=== PATIENT | male | born 1950 | race Caucasian/White ===

== ENCOUNTER 2020-08-18 15:50 | Outpatient (REF) | payer MEDICARE, BC, SELFPAY ==
--- NOTE | 2020-08-18 16:15 | XR_ITS ---
EXAMINATION: XR CHEST CLINICAL INFORMATION: Shortness of breath. Former smoker. Hypercholesterolemia. COMPARISON: None TECHNIQUE: 2 views of the chest were obtained. FINDINGS: The lungs are well expanded. There is no focal consolidation, edema, or effusion. No pneumothorax. The cardiomediastinal silhouette is within normal limits. No acute osseous abnormality. Degenerative changes noted in the spine. XR/XR chest 2V IMPRESSION: No acute pulmonary finding.
[2020-08-18 16:23] LABS: MANUAL DIFF FLAG NO
[2020-08-18 16:26] LABS: Basophils Percent Auto 0.3 % (0-2); Eosinophils Absolute Auto 0.3 X10*3/uL (0.0-0.4); Eosinophils Percent Auto 2.7 % (0-4); Hematocrit 47.8 % (42-52); Hemoglobin 16.2 g/dl (14.0-18.0); Imm Gran Abs Auto 0.03 X10*3/uL (0.00-0.03); Imm Gran Pct Auto 0.3 % (0.0-0.4); Lymphocytes Absolute Auto 1.8 X10*3/uL (1.2-4.9); Lymphocytes Percent Auto 19.6 % (20-40); Mean Corpuscular HGB Conc 33.9 g/dl (31.0-36.0); Mean Corpuscular Hemoglobin 29.2 pg (27.0-33.0); Mean Corpuscular Volume 86.1 fL (80-98); Mean Platelet Volume 9.9 fL (9.4-12.4); Monocytes Absolute Auto 0.7 X10*3/uL (0.1-1.2); Monocytes Percent Auto 7.3 % (2-11); Neutrophils Absolute Auto 6.4 X10*3/uL (2.0-8.3); Neutrophils Percent Auto 69.8 % (45-73); Platelet Count 270 X10*3/uL (160-400); Red Blood Count 5.55 X10*6/uL (4.60-5.80); Red Cell Distribution Width 13.5 % (11.0-16.0); White Blood Count 9.1 X10*3/uL (4.8-10.8)
[2020-08-18 16:59] LABS: Alanine Aminotransferase 36 U/L (0-40); Albumin Level 4.3 g/dL (3.5-5.0); Alkaline Phosphatase 117 U/L (39-117); Anion Gap 15 (12-20); Aspartate Amino Transferase 27 U/L (5-37); Bilirubin Total 0.4 mg/dL (0.0-1.0); Blood Urea Nitrogen 18 mg/dL (9-16); Calcium 9.2 mg/dL (8.4-10.2); Carbon Dioxide 28 mmol/L (22-29); Chloride 102 mmol/L (96-108); Cholesterol 168 mg/dL; Estimated Glomerular Filt Rate > 60; Glucose Random 101 mg/dL (60-115); HDL Cholesterol 32 mg/dL; LDL Cholesterol Calculated 95 mg/dl; Potassium 4.2 mmol/l (3.3-5.1); Sodium 141 mmol/L (135-145); Total Protein 7.9 g/dL (6.5-8.0); Triglycerides 208 mg/dL
[2020-08-19 07:47] LABS: Estimated Average Glucose 151 mg/dL; Hemoglobin A1c % 6.9 %
== END 2020-08-18 15:51 | disposition home or self-care (01) ==
LOC: HO.LAB 15:50
PROVIDERS: PCP Internal Medicine Medical Oncology; Visit Provider Internal Medicine Medical Oncology
DX: R06.02 Shortness of breath (principal); E78.00 Pure hypercholesterolemia, unspecified; Z87.891 Personal history of nicotine dependence
CPT/HCPCS: 36415; 71046; 80053; 80061; 83036; 85025

== ENCOUNTER 2020-08-24 07:54 | Outpatient (REF) | payer MEDICARE, BC, SELFPAY ==
--- NOTE | 2020-08-24 | PFT_ITS ---
FLOWS: FEV1 of 63% of predicted at 2.37 L. FVC 67% of predicted at 3.40 L. FEV1 to FVC ratio of 0.70. Positive bronchodilator response. LUNG VOLUMES: Total lung capacity 82% of predicted at 6.33 L. Residual volume 123% of predicted at 3.16 L. Slow vital capacity 62% of predicted at 3.16 L. Expiratory reserve volume of predicted at 0.27 L. Diffusion capacity is mildly decreased, diffusion capacity corrects to normal after adjustment for alveolar ventilation. IMPRESSION: Moderate obstructive ventilatory defect with positive bronchodilator response. Increased residual volume suggests air trapping. Decreased expiratory reserve volume suggests extrathoracic restriction likely secondary to abdominal obesity. MD IVETH Yao/MODL / [id number]
== END 2020-08-24 07:55 | disposition home or self-care (01) ==
LOC: HO.RESP 07:54
PROVIDERS: PCP Internal Medicine Medical Oncology; Visit Provider Internal Medicine Medical Oncology
DX: R06.02 Shortness of breath (principal); E78.00 Pure hypercholesterolemia, unspecified; Z87.891 Personal history of nicotine dependence
CPT/HCPCS: 94060; 94727; 94729

== ENCOUNTER 2023-04-21 16:19 | Emergency (ER) | payer MEDICARE, BC, SELFPAY ==
--- NOTE | ~2023-04-21 | CT_ITS ---
CT THORACIC SPINE WITH CONTRAST CT LUMBAR SPINE WITH CONTRAST HISTORY: 72 years old Male, back pain TECHNIQUE: CT images of the thoracic and lumbar spine were acquired allowing intravenous administration of 100 mL Omnip[address] examination was performed using dose optimization techniques as appropriate, variously including the following: *Automated exposure control *Adjustment of mA and/or kV according to patient size (this includes techniques or standardized protocols for targeted exams where dose is matched to indication/reason for exam; i.e. extremities or head) *Use of iterative reconstruction technique DLP: 2446.62 mGy-cm COMPARISON: None available FINDINGS: THORACIC: Slight levocurvature of the cervicothoracic junction. Slightly exaggerated midthoracic kyphosis at T5-T6. Extensive exuberant diffuse idiopathic skeletal hyperostosis with bridging prevertebral/paraspinal ossification and ventral disc osteophytes with multilevel osseous fusion spanning from T3 into the lumbar spine, apart from T5-T6 where there is a chronic pseudoarthrosis with vacuum disc phenomenon. Vertebral body heights are maintained. No findings of discitis osteomyelitis in the thoracic or imaged cervical spine. There is multilevel mild thoracic disc height loss and small endplate Schmorl's nodes with degenerative endplate irregularity most pronounced at T5-T6.Please note canal patency is not well assessed on this examination due to inherent limitations of CT without intrathecal contrast. Partially imaged cervical spondylosis, including a central disc protrusion and C3-C4 encroaching upon the ventral cord. Varying degrees of high-grade neural foraminal narrowing in the mid to lower cervical spine. Disc osteophyte at T5-T6 contributes to mild spinal canal narrowing. No significant thoracic neural foraminal stenosis at any level. The visualized lungs are clear. Partially imaged cardiac pacemaker leads. Mild calcific plaque of the aortic arch and great vessel origins, and imaged carotid bifurcations. 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 The L5-S1 disc space can be seen on image 99, series 14. Postsurgical changes following right hemilaminectomy at L5-S1 with instrumented posterior interbody fusion utilizing paired vertical stabilization rods and bilateral transpedicular screws at these levels. The hardware appears intact without periprosthetic osteolysis to suggest loosening or infection. Chronic right L4 pars interarticularis defect. An L4-L5 interspinous posterior device is seen. There is a left L3 laminectomy defect and partial left facetectomy at L3-L4, where there is amorphous soft tissue in the laminectomy bed with indistinctness of the spinal canal which is not well delineated from adjacent soft tissue with effacement of the thecal sac. Findings would be better assessed with contrast-enhanced MRI. The quadratus lumborum musculature appear symmetric without evidence of peripherally enhancing fluid collection/abscess. The psoas muscles are symmetric without paraspinal inflammatory change. Mild lumbar levocurvature centered at L4-L5. Slight right lateral listhesis at L3-L4. Normal lumbar lordosis is preserved. Slight retrolisthesis at L3-L4. Severe disc height loss at L4-L5, moderate at L3-L4 with multilevel vacuum disc phenomenon. Prominent eburnation at L3-L4 with subchondral cystic change, to lesser extent at L4-L5, presumably degenerative in etiology. Multilevel ventral disc osteophytes with bridging prevertebral/paraspinal ossification. Cortical indistinctness/erosive change of lateral paraspinal ossification at L3-L4 (image 27, series 15), which reflect sequelae of prior infectious/inflammatory process. Please not canal patency is not well assessed on this examination due to inherent limitations of CT without intrathecal contrast. Within these limitations, multilevel degenerative changes with level by level detail are as follows: L1-L2: Annular disc bulge. No spinal canal or neural foraminal stenosis. L2-L3: Annular disc bulge with osteophytic ridging and mild bilateral facet arthrosis. Prominence of the dorsal epidural fat. Moderate to severe spinal canal and subarticular zone narrowing. Moderate left and mild to moderate right neural foraminal narrowing. L3-L4: Postsurgical changes with soft tissue within the left L3 laminectomy bed and indistinctness of the spinal canal with thecal sac effacement as discussed above, which would be better assessed on contrast-enhanced MRI. Disc osteophyte complex and bilateral facet arthrosis. Severe left neural foraminal stenosis with compression of the exiting left L3 nerve root and moderate right neural foraminal stenosis. L4-L5: Nondiagnostic assessment of the spinal canal from streak artifact. Disc osteophyte complex and moderate facet arthropathy contribute to apparent mild bony spinal canal stenosis. Severe bilateral neural foraminal stenosis with compression of the exiting L4 nerve roots. L5-S1: Postsurgical changes as above. Disc osteophyte complex and bilateral facet arthrosis. Nondiagnostic assessment of the spinal canal due to streak artifact however without significant bony spinal canal stenosis. Severe right and moderate to severe left neural foraminal stenosis with mass effect along the exiting right greater than left L5 nerve roots. Postsurgical changes in the paramidline dorsal soft tissues and moderate fatty atrophy of the lower paraspinal musculature. Asymmetric atrophy of the right piriformis muscle. Significant colonic diverticulosis with mural thickening, likely on the basis of chronic muscular hypertrophy without significant pericolonic fat stranding. Mild aortobiiliac calcific atherosclerotic disease. The abdominal aorta is of normal contour and caliber. CT/CT thoracic spine w IV con IMPRESSION: 1. 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 2. Left L3 laminectomy and partial left L3-L4 facetectomy. Amorphous soft tissue in the laminectomy bed with indistinctness of the spinal canal which is not well delineated from adjacent soft tissue with resultant thecal sac effacement. Recommend further evaluation assessed with contrast-enhanced MRI. Cortical indistinctness/erosive change of lateral paraspinal ossification at this level may reflect sequelae of prior infectious/inflammatory process. 3. The quadratus lumborum musculature appear symmetric without evidence of peripherally enhancing fluid collection/abscess. 4. Postsurgical changes following right hemilaminectomy at L5-S1 and posterior interbody fusion at L5-S1 with intact hardware. No evidence of periprosthetic osteolysis to suggest loosening or infection. 5. Findings of thoracolumbar DISH as above with pseudoarthrosis at T5-T6. 6. Please not canal patency is not well assessed on this examination due to inherent limitations of CT without intrathecal contrast. There is apparent moderate to severe spinal canal stenosis at L2-L3 and mild spinal canal stenosis at L4-L5. High-grade neural foraminal stenosis spanning from L3-L4 to L5-S1 with mass effect along the exiting nerve roots as described above.
[2023-04-21 16:50] VITALS: BP 142/76; BP 162/70; PULSE 76; PULSE 83; RESP 18; TEMP 37.1; O2SAT 96; BMI 37.4
--- NOTE | 2023-04-21 16:54 | PC.NURSE ---
Patient arrived from [facility] for complaints of ams and back pain. patient alert and oriented and stating he has 10/10 back pain. Starting yesterday stating he has had wheezing, sob, and disorientation. Per daughter BP is always high. Per patient/daughter in november had an electrical stimulator placed. In march became disoriented, went to [facility] from march 02- . 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 Had a l3-l4 infection and was started on vanco for spine infection. Went to snf for vanco. Per patient infection is spreading to muscle and in spine. Abt switched from vanco. Bilateral tiera wraps to legs.
--- NOTE | 2023-04-21 17:10 | ECG_ITS ---
Test Reason : SOB Blood Pressure : / mmHG Vent. Rate : 073 BPM Atrial Rate : 394 BPM P-R Int : 000 ms QRS Dur : 098 ms QT Int : 370 ms P-R-T Axes : 029 001 015 degrees QTc Int : 407 ms Normal sinus rhythm Incomplete right bundle branch block Cannot rule out Anterior infarct , age undetermined Abnormal ECG No previous ECGs available Referred By: Priyanka Rico Electronically Signed By:Mariano Corrigan
--- NOTE | 2023-04-21 17:15 | ED_ITS ---
HPI - General Adult General Chief complaint: General Medical Stated complaint: SHORTNESS OF BREATH WEAKNESS Time Seen by Provider: 04/21/23 16:25 Source: patient and family Mode of arrival: EMS Limitations: no limitations History of Present Illness HPI narrative: Patient comes to the emergency room from a nursing facility, patient complaining of worsening back pain, status post stimulator placement complicated by a muscular abscess and diskitis. Patient was recently discharged from [facility], patient was diagnosed with the left quadratus lumborum , diskitis, inflammation all spinal canal with mild central stenosis. Patient currently taking IV meropenem and daptomycin. According to the patient's daughter, he has been more altered than usual. Admission to [facility] was complicated by pain management and diarrhea. Patient states that he was having diarrhea at [facility], however it resolved initially. Now, since the last week approximately, he has been having 6 diarrhea bowel movements daily. Patient denies fever or chills. Patient concerned that the infection in his back got worse. Related Data Previous Rx's Medication Instructions Recorded hydromorphone 2 mg tablet 2 mg PO Q6H PRN pain #10 tabs 04/21/23 (Dilaudid) Allergies Allergy/AdvReac Type Severity Reaction Status Date / Time Penicillins Allergy Unknown Unknown Verified 04/21/23 17:09 ativan Allergy Unknown Unknown Uncoded 04/21/23 17:09 Review of Systems Review of Systems: Constitutional : No Weight loss, No Fever, No Chills, No Night Sweats, No Fatigue, No Malaise ENT/Mouth : No Hearing loss, No Ear Pain, No Nasal Congestion, No Sinus Pain, No Hoarseness, No sore throat, No Rhinorrhea, No Swallowing Difficulty Eyes: No Eye Pain, No Swelling, No Redness, No Foreign Body, No Discharge, No Vision Changes Cardiovascular : No Chest Pain, No SOB, No Dyspnea on Exertion, No Orthopnea, No Edema, No Palpitations Respiratory : No Cough, No Sputum, No Wheezing, No Smoke Exposure, No Dyspnea Gastrointestinal : No Nausea, No Vomiting, complaining of Diarrhea, No Constipation, No abdominal Pain, No Hematochezia, No Melena Genitourinary : no irregular bleeding, No Dysuria, No Urinary Frequency, No Hematuria, No Urinary Incontinence, No Urgency, No Flank Pain, No Urinary Flow Changes, No Hesitancy Musculoskeletal : Patient complaining of acute on chronic thoracic and lumbar pain, No Myalgias, No Joint Swelling Skin : No Skin Lesions, No rash Neuro : No Weakness, No Numbness, No Paresthesias, No Loss of Consciousness, No Dizziness, No Headache Psych : No Anxiety/Panic, No Depression, No SI/HI/AH/VH, No Social Issues, Heme/Lymph: No Bruising, No Bleeding,No Lymphadenopathy Endocrine : No Polyuria, No Polydipsia, No Temperature Intolerance [facility] Past Medical History Medical History (Updated 04/21/23 @ 22:25 by Priyanka Rico MD) Chronic back pain CKD (chronic kidney disease) COPD (chronic obstructive pulmonary disease) Diabetes Hyperlipidemia Hypertension Lumbar stenosis Social History Social History Alcohol intake: never Smoked in Last 30 Days: No Use of substances other than those prescribed or required for medical reasons: No Advance Directives: No Advance Directives Information Provided: No Physical Exam ED Vital Signs: Vital Signs - 24 hr 04/21/23 16:50 04/21/23 17:17 04/21/23 17:46 Temperature 98.8 F 98.8 F Pulse Rate 83 83 94 Respiratory Rate 18 18 18 Blood Pressure 162/70 H 162/70 H 140/77 H Pulse Oximetry 96 95 Oxygen Delivery Method Room Air Room Air Room Air 04/21/23 19:57 Temperature 99.2 F Pulse Rate 77 Respiratory Rate 16 Blood Pressure 149/79 H Pulse Oximetry 94 Oxygen Delivery Method Room Air BMI result Body Mass Index 37.4 Const Other: Appearance: Alert. Oriented X3. No acute distress. Eyes: Pupils equal, round and reactive to light. ENT: Pharynx normal. Neck: Normal inspection. Neck supple. No lymph nodes noted. No crepitus CVS: Normal heart rate and rhythm. Pulses normal. Normal S1 and S2 Respiratory: No respiratory distress. Breath sounds normal. No Wheezing. No rales Abdomen: Soft and nontender. No rigidity. No distention. Multiple ecchymoses in abdomen (from IM blood thinner) Back: Pain to palpation over the lower thoracic and upper lumbar spine, pain out of proportion Skin: Skin warm and dry. Normal skin color. Normal skin turgor. Extremities: No lower extremity edema. No Lacerations. No Rash Neuro: Oriented X 3. No motor deficit. No sensory deficit. Moving all extremities. No slurred speech. CN 2 through 12 grossly intact Psych: calm, cooperative, normal affect Medications Administered Discontinued Medications Generic Name Dose Route Start Last Admin Trade Name Jaspreet PRN Reason Stop Dose Admin Hydromorphone HCl 1 mg 04/21/23 17:31 04/21/23 17:41 Hydromorphone Hcl 1 Mg/Ml Syringe IVPUSH 04/21/23 17:32 1 mg ONCE ONE Administration Protocol Iohexol 100 ml 04/21/23 18:59 04/21/23 19:00 Iohexol 350 Mg/Ml 75 Ml Infus..Btl IV 04/21/23 19:00 100 ml ONCE ONE Administration Medical Decision Making Medical Decision Making [facility] Narrative: -I discussed the CT scan of the thoracic and lumbar spine with the patient, his daughter was in the room and his over the phone. All chronic issues. The previous abscess of the quadratus lumborum is no longer visible, there is no evidence of peripherally enhancing fluid collection or abscess. Cortical erosive changes of the lateral paraspinal suffocation at L3-L4 likely secondary to sequela of prior infectious or inflammatory process. Multiple postsurgical changes and chronic findings. No acute changes. White blood cell count within normal limits, ESR minimally elevated at 38, CRP 1.75. Patient has no fever or chills, normal blood pressure. -patient given several doses of Dilaudid for pain. Requesting a prescription for the skilled facility. -patient to continue taking IV meropenem and daptomycin as instructed per [facility] Patient was in the emergency room for at least 6 hours, he did not have a single episode of diarrhea, we did not obtain a stool sample, given the normal white blood cell count and no diarrhea, unlikely that patient has C diff Differential Diagnosis Differential Diagnoses: The differential diagnosis associated with the presentation includes (Worsening abscess, new abscess of the back muscles) Admission/Observation Consideration of admission/observation: Escalation of care including admission/observation considered (Admission was considered when patient arrived, patient had multiple surgeries in the back, biopsies, recently discharged from the hospital, severe pain. However now feeling better after IV Dilaudid) Lab Data [facility] Lab Attestation statement: I reviewed the patient's lab results. 04/21/23 17:33 04/21/23 17:32 Labs: Lab Results 04/21/23 04/21/23 04/21/23 Range/Units 17:32 17:32 17:32 WBC (4.8-10.8) X10*3/uL RBC (4.60-5.80) X10*6/uL Hgb (14.0-18.0) g/dl Hct (42.0-52.0) % MCV (80.0-98.0) fL MCH (27.0-33.0) pg MCHC (31.0-36.0) g/dl RDW (11.0-16.0) % Plt Count (160-400) X10*3/uL MPV (9.4-12.4) fL Immature Gran % (Auto) (0.0-0.4) % Neut % (Auto) (45-73) % Lymph % (Auto) (20-40) % [place] % (Auto) (2-11) % Eos % (Auto) (0-4) % Baso % (Auto) (0-2) % Lymph # (Auto) (1.2-4.9) X10*3/uL [place] # (Auto) (0.1-1.2) X10*3/uL Eos # (Auto) (0.0-0.4) X10*3/uL Baso # (Auto) (0.0-0.2) X10*3/uL Abs Immat Gran (auto) (0.00-0.03) X10*3/uL Absolute Neuts (auto) (2.0-8.3) x10*3/uL Absolute Nucleated RBC (0.0-0.012) X10*3/uL Nucleated RBC % (auto) (0.0-0.2) /100WBC ESR (0-15) MM/HR PT 12.4 (10.0-13.1) SEC INR 1.1 (0.9-1.1) Sodium 137 (135-145) mmol/L Potassium 4.2 (3.3-5.1) mmol/L Chloride 101 (96-108) mmol/L Carbon Dioxide 29 (22-29) mmol/L Anion Gap 11 L (12-20) BUN 17 H (9-16) mg/dL Creatinine 1.14 (0.5-1.4) mg/dL Estim Creat Clear Calc 87.1 Estimated GFR > 60 Random Glucose 102 (60-115) mg/dL Lactic Acid (0.5-2.0) mmol/L Calcium 9.4 (8.4-10.2) mg/dL Total Bilirubin 0.4 (0.0-1.0) mg/dL Direct Bilirubin 0.2 (0.0-0.5) mg/dL AST 44 H (5-37) U/L ALT 52 H (0-40) U/L Alkaline Phosphatase 121 H (39-117) U/L Troponin I High Sens 5.3 (<3.5-35.0) ng/L C-Reactive Protein 1.75 H (< or = 0.50) mg/dL B-Natriuretic Peptide (<100) pg/mL Total Protein 7.7 (6.5-8.0) g/dL Albumin 3.8 (3.5-5.0) g/dL Urine Color Urine Appearance Urine pH (5.0-9.0) Ur Specific [place] (1.005-1.025) Urine Protein (Neg-Trace) mg/dL Urine Glucose (UA) (Negative) mg/dL Urine Ketones (Negative) mg/dL Urine Blood (Negative) Urine Nitrite (Negative) Ur Leukocyte Esterase (Negative) Urine RBC (0-2) /HPF Urine WBC (0-5) /HPF Ur Squamous Epith Cells (0-2) /HPF Urine Bacteria (None Seen) Hyaline Casts (0-2) /LPF COVID-19 (NAYAN) (Negative) COVID-19 Clin Com 04/21/23 04/21/23 04/21/23 Range/Units 17:32 17:33 17:33 WBC 6.1 (4.8-10.8) X10*3/uL RBC 4.63 (4.60-5.80) X10*6/uL Hgb 12.6 L (14.0-18.0) g/dl Hct 39.2 L (42.0-52.0) % MCV 84.7 (80.0-98.0) fL MCH 27.2 (27.0-33.0) pg MCHC 32.1 (31.0-36.0) g/dl RDW 13.3 (11.0-16.0) % Plt Count 228 (160-400) X10*3/uL MPV 10.1 (9.4-12.4) fL Immature Gran % (Auto) 0.3 (0.0-0.4) % Neut % (Auto) 56.1 (45-73) % Lymph % (Auto) 15.3 L (20-40) % [place] % (Auto) 10.8 (2-11) % Eos % (Auto) 17.0 H (0-4) % Baso % (Auto) 0.5 (0-2) % Lymph # (Auto) 0.9 L (1.2-4.9) X10*3/uL [place] # (Auto) 0.7 (0.1-1.2) X10*3/uL Eos # (Auto) 1.0 H (0.0-0.4) X10*3/uL Baso # (Auto) 0.0 (0.0-0.2) X10*3/uL Abs Immat Gran (auto) 0.02 (0.00-0.03) X10*3/uL Absolute Neuts (auto) 3.4 (2.0-8.3) x10*3/uL Absolute Nucleated RBC 0.000 (0.0-0.012) X10*3/uL Nucleated RBC % (auto) 0.0 (0.0-0.2) /100WBC ESR 38 H (0-15) MM/HR PT (10.0-13.1) SEC INR (0.9-1.1) Sodium (135-145) mmol/L Potassium (3.3-5.1) mmol/L Chloride (96-108) mmol/L Carbon Dioxide (22-29) mmol/L Anion Gap (12-20) BUN (9-16) mg/dL Creatinine (0.5-1.4) mg/dL Estim Creat Clear Calc Estimated GFR Random Glucose (60-115) mg/dL Lactic Acid (0.5-2.0) mmol/L Calcium (8.4-10.2) mg/dL Total Bilirubin (0.0-1.0) mg/dL Direct Bilirubin (0.0-0.5) mg/dL AST (5-37) U/L ALT (0-40) U/L Alkaline Phosphatase (39-117) U/L Troponin I High Sens (<3.5-35.0) ng/L C-Reactive Protein (< or = 0.50) mg/dL B-Natriuretic Peptide 51 (<100) pg/mL Total Protein (6.5-8.0) g/dL Albumin (3.5-5.0) g/dL Urine Color Urine Appearance Urine pH (5.0-9.0) Ur Specific [place] (1.005-1.025) Urine Protein (Neg-Trace) mg/dL Urine Glucose (UA) (Negative) mg/dL Urine Ketones (Negative) mg/dL Urine Blood (Negative) Urine Nitrite (Negative) Ur Leukocyte Esterase (Negative) Urine RBC (0-2) /HPF Urine WBC (0-5) /HPF Ur Squamous Epith Cells (0-2) /HPF Urine Bacteria (None Seen) Hyaline Casts (0-2) /LPF COVID-19 (NAYAN) (Negative) COVID-19 Clin Com 04/21/23 04/21/23 04/21/23 Range/Units 17:33 17:36 17:50 WBC (4.8-10.8) X10*3/uL RBC (4.60-5.80) X10*6/uL Hgb (14.0-18.0) g/dl Hct (42.0-52.0) % MCV (80.0-98.0) fL MCH (27.0-33.0) pg MCHC (31.0-36.0) g/dl RDW (11.0-16.0) % Plt Count (160-400) X10*3/uL MPV (9.4-12.4) fL Immature Gran % (Auto) (0.0-0.4) % Neut % (Auto) (45-73) % Lymph % (Auto) (20-40) % [place] % (Auto) (2-11) % Eos % (Auto) (0-4) % Baso % (Auto) (0-2) % Lymph # (Auto) (1.2-4.9) X10*3/uL [place] # (Auto) (0.1-1.2) X10*3/uL Eos # (Auto) (0.0-0.4) X10*3/uL Baso # (Auto) (0.0-0.2) X10*3/uL Abs Immat Gran (auto) (0.00-0.03) X10*3/uL Absolute Neuts (auto) (2.0-8.3) x10*3/uL Absolute Nucleated RBC (0.0-0.012) X10*3/uL Nucleated RBC % (auto) (0.0-0.2) /100WBC ESR (0-15) MM/HR PT (10.0-13.1) SEC INR (0.9-1.1) Sodium (135-145) mmol/L Potassium (3.3-5.1) mmol/L Chloride (96-108) mmol/L Carbon Dioxide (22-29) mmol/L Anion Gap (12-20) BUN (9-16) mg/dL Creatinine (0.5-1.4) mg/dL Estim Creat Clear Calc Estimated GFR Random Glucose (60-115) mg/dL Lactic Acid 0.9 (0.5-2.0) mmol/L Calcium (8.4-10.2) mg/dL Total Bilirubin (0.0-1.0) mg/dL Direct Bilirubin (0.0-0.5) mg/dL AST (5-37) U/L ALT (0-40) U/L Alkaline Phosphatase (39-117) U/L Troponin I High Sens (<3.5-35.0) ng/L C-Reactive Protein (< or = 0.50) mg/dL B-Natriuretic Peptide (<100) pg/mL Total Protein (6.5-8.0) g/dL Albumin (3.5-5.0) g/dL Urine Color Yellow Urine Appearance Clear Urine pH 7.5 (5.0-9.0) Ur Specific [place] 1.010 (1.005-1.025) Urine Protein Trace (Neg-Trace) mg/dL Urine Glucose (UA) Negative (Negative) mg/dL Urine Ketones Negative (Negative) mg/dL Urine Blood Trace H (Negative) Urine Nitrite Negative (Negative) Ur Leukocyte Esterase Negative (Negative) Urine RBC 0-2 (0-2) /HPF Urine WBC 0-5 (0-5) /HPF Ur Squamous Epith Cells 0-2 (0-2) /HPF Urine Bacteria None Seen (None Seen) Hyaline Casts 0-2 (0-2) /LPF COVID-19 (NAYAN) Negative (Negative) COVID-19 Clin Com See Note Radiology Impression Discussion of test interpretation with radiology: I have reviewed the radiol ogist's reading. Radiologist Impression: FINDINGS: THORACIC: Slight levocurvature of the cervicothoracic junction. Slightly exaggerated midthoracic kyphosis at T5-T6. Extensive exuberant diffuse idiopathic skeletal hyperostosis with bridging prevertebral/paraspinal ossification and ventral disc osteophytes with multilevel osseous fusion spanning from T3 into the lumbar spine, apart from T5-T6 where there is a chronic pseudoarthrosis with vacuum disc phenomenon. Vertebral body heights are maintained. No findings of discitis osteomyelitis in the thoracic or imaged cervical spine. There is multilevel mild thoracic disc height loss and small endplate Schmorl's nodes with degenerative endplate irregularity most pronounced at T5-T6.Please note canal patency is not well assessed on this examination due to inherent limitations of CT without intrathecal contrast. Partially imaged cervical spondylosis, including a central disc protrusion and C3-C4 encroaching upon the ventral cord. Varying degrees of high-grade neural foraminal narrowing in the mid to lower cervical spine. Disc osteophyte at T5-T6 contributes to mild spinal canal narrowing. No significant thoracic neural foraminal stenosis at any level. The visualized lungs are clear. Partially imaged cardiac pacemaker leads. Mild calcific plaque of the aortic arch and great vessel origins, and imaged carotid bifurcations. 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 The L5-S1 disc space can be seen on image 99, series 14. Postsurgical changes following right hemilaminectomy at L5-S1 with instrumented posterior interbody fusion utilizing paired vertical stabilization rods and bilateral transpedicular screws at these levels. The hardware appears intact without periprosthetic osteolysis to suggest loosening or infection. Chronic right L4 pars interarticularis defect. An L4-L5 interspinous posterior device is seen. There is a left L3 laminectomy defect and partial left facetectomy at L3-L4, where there is amorphous soft tissue in the laminectomy bed with indistinctness of the spinal canal which is not well delineated from adjacent soft tissue with effacement of the thecal sac. Findings would be better assessed with contrast-enhanced MRI. The quadratus lumborum musculature appear symmetric without evidence of peripherally enhancing fluid collection/abscess. The psoas muscles are symmetric without paraspinal inflammatory change. Mild lumbar levocurvature centered at L4-L5. Slight right lateral listhesis at L3-L4. Normal lumbar lordosis is preserved. Slight retrolisthesis at L3-L4. Severe disc height loss at L4-L5, moderate at L3-L4 with multilevel vacuum disc phenomenon. Prominent eburnation at L3-L4 with subchondral cystic change, to lesser extent at L4-L5, presumably degenerative in etiology. Multilevel ventral disc osteophytes with bridging prevertebral/paraspinal ossification. Cortical indistinctness/erosive change of lateral paraspinal ossification at L3-L4 (image 27, series 15), which reflect sequelae of prior infectious/inflammatory process. Please not canal patency is not well assessed on this examination due to inherent limitations of CT without intrathecal contrast. Within these limitations, multilevel degenerative changes with level by level detail are as follows: L1-L2: Annular disc bulge. No spinal canal or neural foraminal stenosis. L2-L3: Annular disc bulge with osteophytic ridging and mild bilateral facet arthrosis. Prominence of the dorsal epidural fat. Moderate to severe spinal canal and subarticular zone narrowing. Moderate left and mild to moderate right neural foraminal narrowing. L3-L4: Postsurgical changes with soft tissue within the left L3 laminectomy bed and indistinctness of the spinal canal with thecal sac effacement as discussed above, which would be better assessed on contrast-enhanced MRI. Disc osteophyte complex and bilateral facet arthrosis. Severe left neural foraminal stenosis with compression of the exiting left L3 nerve root and moderate right neural foraminal stenosis. L4-L5: Nondiagnostic assessment of the spinal canal from streak artifact. Disc osteophyte complex and moderate facet arthropathy contribute to apparent mild bony spinal canal stenosis. Severe bilateral neural foraminal stenosis with compression of the exiting L4 nerve roots.? L5-S1: Postsurgical changes as above. Disc osteophyte complex and bilateral facet arthrosis. Nondiagnostic assessment of the spinal canal due to streak artifact however without significant bony spinal canal stenosis. Severe right and moderate to severe left neural foraminal stenosis with mass effect along the exiting right greater than left L5 nerve roots. Postsurgical changes in the paramidline dorsal soft tissues and moderate fatty atrophy of the lower paraspinal musculature. Asymmetric atrophy of the right piriformis muscle. Significant colonic diverticulosis with mural thickening, likely on the basis of chronic muscular hypertrophy without significant pericolonic fat stranding. Mild aortobiiliac calcific atherosclerotic disease. The abdominal aorta is of normal contour and caliber. CT/CT thoracic spine w IV con IMPRESSION: ? 1.? 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 2.? Left L3 laminectomy and partial left L3-L4 facetectomy. Amorphous soft tissue in the laminectomy bed with indistinctness of the spinal canal which is not well delineated from adjacent soft tissue with resultant thecal sac effacement. Recommend further evaluation assessed with contrast-enhanced MRI. Cortical indistinctness/erosive change of lateral paraspinal ossification at this level may reflect sequelae of prior infectious/inflammatory process. 3.? The quadratus lumborum musculature appear symmetric without evidence of peripherally enhancing fluid collection/abscess. 4.? Postsurgical changes following right hemilaminectomy at L5-S1 and posterior interbody fusion at L5-S1 with intact hardware. No evidence of periprosthetic osteolysis to suggest loosening or infection. 5.? Findings of thoracolumbar DISH as above with pseudoarthrosis at T5-T6. 6.? Please not canal patency is not well assessed on this examination due to inherent limitations of CT without intrathecal contrast. There is apparent moderate to severe spinal canal stenosis at L2-L3 and mild spinal canal stenosis at L4-L5. High-grade neural foraminal stenosis spanning from L3-L4 to L5-S1 with mass effect along the exiting nerve roots as described above. ? Discharge Plan Discharge Clinical Impression: Chronic back pain Patient Disposition: Home, Self-Care Instructions: Chronic Back Pain (DC) Additional Instructions: Please follow-up with your primary care physician tomorrow. If you have any worsening or new symptoms, please return to the emergency room or call 911 Prescriptions: New hydromorphone [Dilaudid] 2 mg tablet 2 mg PO Q6H PRN (Reason: pain) Qty: 10 0RF Rx Instructions: Partial Fill upon patient request.
[2023-04-21 17:17] VITALS: BP 162/70; PULSE 83; RESP 18; TEMP 37.1; O2SAT 96
[2023-04-21] MEDS: HYDROmorphone HCl 1 MG/ML SYRINGE IVPUSH ×2 (17:41→22:47)
[2023-04-21 17:45] LABS: MANUAL DIFF FLAG NO
[2023-04-21 17:46] VITALS: BP 140/77; PULSE 94; RESP 18; O2SAT 95
[2023-04-21 17:51] LABS: Basophils Percent Auto 0.5 % (0-2); Hematocrit 39.2 % (42.0-52.0); Hemoglobin 12.6 g/dl (14.0-18.0); Imm Gran Abs Auto 0.02 X10*3/uL (0.00-0.03); Imm Gran Pct Auto 0.3 % (0.0-0.4); Lymphocytes Absolute Auto 0.9 X10*3/uL (1.2-4.9); Lymphocytes Percent Auto 15.3 % (20-40); Mean Corpuscular HGB Conc 32.1 g/dl (31.0-36.0); Mean Corpuscular Hemoglobin 27.2 pg (27.0-33.0); Mean Corpuscular Volume 84.7 fL (80.0-98.0); Mean Platelet Volume 10.1 fL (9.4-12.4); Monocytes Absolute Auto 0.7 X10*3/uL (0.1-1.2); Monocytes Percent Auto 10.8 % (2-11); Neutrophils Absolute Auto 3.4 x10*3/uL (2.0-8.3); Neutrophils Percent Auto 56.1 % (45-73); Platelet Count 228 X10*3/uL (160-400); Red Blood Count 4.63 X10*6/uL (4.60-5.80); Red Cell Distribution Width 13.3 % (11.0-16.0); White Blood Count 6.1 X10*3/uL (4.8-10.8)
[2023-04-21 17:57] LABS: INTERNATIONAL NORM RATIO 1.1 (0.9-1.1); Prothrombin Time 12.4 SEC (10.0-13.1)
[2023-04-21 18:00] LABS: Appearance Urine Clear; Color Urine Yellow; Glucose Urine UA Negative (Negative); Leukocyte Esterase Urine Negative (Negative); Nitrite Urine Negative (Negative); PH 7.5 (5.0-9.0); UMIC TRIGGER UACC YES; Urine Blood Trace (Negative); Urine Ketones Negative (Negative); Urine Protein Trace mg/dL (Neg-Trace)
[2023-04-21 18:02] LABS: Bacteria Urine None Seen (None Seen); Hyaline Casts Urine 0-2 /LPF (0-2); RBC Urine 0-2 /HPF (0-2); Squamous Epithelial Cell Urine 0-2 /HPF (0-2); WBC Urine 0-5 /HPF (0-5)
[2023-04-21 18:04] LABS: Lactic Acid 0.9 mmol/L (0.5-2.0)
[2023-04-21 18:07] LABS: Alanine Aminotransferase 52 U/L (0-40); Albumin Level 3.8 g/dL (3.5-5.0); Alkaline Phosphatase 121 U/L (39-117); Anion Gap 11 (12-20); Aspartate Amino Transferase 44 U/L (5-37); Bilirubin Direct 0.2 mg/dL (0.0-0.5); Bilirubin Total 0.4 mg/dL (0.0-1.0); Blood Urea Nitrogen 17 mg/dL (9-16); C Reactive Protein 1.75 mg/dL (< or = 0.50); Calcium 9.4 mg/dL (8.4-10.2); Carbon Dioxide 29 mmol/L (22-29); Chloride 101 mmol/L (96-108); Creatinine Clr Calc Pharmacy 87.1; Estimated Glomerular Filt Rate > 60; Glucose Random 102 mg/dL (60-115); Potassium 4.2 mmol/L (3.3-5.1); Sodium 137 mmol/L (135-145); Total Protein 7.7 g/dL (6.5-8.0)
[2023-04-21 18:08] LABS: COVID-19 Test Negative (Negative); IDNOW Serial# 08D9AD1C
[2023-04-21 18:13] LABS: B Type Natriuretic Peptide 51 pg/mL (<100)
[2023-04-21 18:15] LABS: Troponin-I High Sensitivity 5.3 ng/L (<3.5-35.0)
[2023-04-21 18:56] LABS: Erythrocyte Sedimentation Rate 38 MM/HR (0-15)
[2023-04-21] MEDS: iohexoL 350 MG/ML 75 ML INFUS..BTL 100 ML IV (19:00)
[2023-04-21 19:57] VITALS: BP 149/79; PULSE 77; RESP 16; TEMP 37.3; O2SAT 94
--- NOTE | 2023-04-21 20:05 | PC.NURSE ---
Assumed care for pt. Pt aox3 sitting in a chair. Reports back pain, 9/10. Assistance provided to the bedside. Ambulatory with assistance. Pending ct scan results. Pt to provide stool sample for C-diff testing.
--- NOTE | 2023-04-21 23:54 | PC.NURSE ---
Nursing report provided to Susan at [facility] as pt is returning via EMS. Pt aware of plan of care.
== END 2023-04-21 23:55 | disposition home or self-care (01) ==
PROVIDERS: Emergency Provider Emergency Medicine; PCP Internal Medicine Medical Oncology
DX: G89.29 Other chronic pain (principal); M54.50 Low back pain, unspecified; M54.6 Pain in thoracic spine; E11.22 Type 2 diabetes mellitus with diabetic chronic kidney disease; I12.9 Hypertensive chronic kidney disease with stage 1 through stage 4 chronic kidney disease, or unspecified chronic kidney disease; N18.9 Chronic kidney disease, unspecified; Z20.822 Contact with and (suspected) exposure to COVID-19
CPT/HCPCS: 36415; 72129; 72132; 80048; 80076; 81001; 83605; 83880; 84484; 85025; 85610; 85652; 86140; 87040; 87635; 93005; 96374; 96376; 99284; J1170; Q9967

== ENCOUNTER → 2023-04-21 17:10 | Outpatient (BNV) | payer MEDICARE, BC, SELFPAY | PROVIDERS: Emergency Provider Emergency Medicine; PCP Internal Medicine Medical Oncology; Visit Provider Internal Medicine Cardiovascular Disease | DX: R06.02 Shortness of breath (principal); R94.31 Abnormal electrocardiogram [ECG] [EKG] | CPT/HCPCS: 93010 ==

== ENCOUNTER 2025-02-13 14:00 | Outpatient (REF) | payer MEDICARE, BC, SELFPAY ==
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
[2025-02-15 11:24] LABS: Adenovirus F 40/41 Not Detected (Not Detect.); Astrovirus Not Detected (Not Detect.); Campylobacter Not Detected (Not Detect.); Cryptosporidium Not Detected (Not Detect.); Cyclospora cayetanensis Not Detected (Not Detect.); E. coli EAEC Not Detected (Not Detect.); E. coli EPEC Not Detected (Not Detect.); E. coli ETEC Not Detected (Not Detect.); E. coli STEC Not Detected (Not Detect.); Entamoeba histolytica Not Detected (Not Detect.); Giardia lamblia Not Detected (Not Detect.); Norovirus GI/GII Not Detected (Not Detect.); Plesiomonas shigelloides Not Detected (Not Detect.); Rotavirus A Not Detected (Not Detect.); Salmonella Not Detected (Not Detect.); Sapovirus Not Detected (Not Detect.); Shigella sp./EIEC Not Detected (Not Detect.); Vibrio Not Detected (Not Detect.); Vibrio Cholerae Not Detected (Not Detect.); Yersinia enterocolitica Not Detected (Not Detect.)
== END 2025-02-13 14:01 | disposition home or self-care (01) ==
LOC: HO.LNP 14:00
PROVIDERS: Visit Provider Internal Medicine Medical Oncology
DX: R19.7 Diarrhea, unspecified (principal)
CPT/HCPCS: 87507

== ENCOUNTER 2025-02-14 18:21 | Outpatient (REF) | payer MEDICARE, BC, SELFPAY ==
--- OUTSIDE RECORDS SUMMARY | 2025-02-14 18:24 | XMS_ITS ---
Author Name [facility] [place] [facility] [place] [facility] [place] Address [address] [place] [address] Care Team Providers Care Caseworker Name Role Phone TRINITY MONTENEGRO Primary Care Provide r Unavailable Insurance Providers: All historical and current Section Date Range: From patient's date of to the date document was created. This section includes the names of all active insurance providers for the patient. Insurance Provider Type of Coverage Plan Name Start of Policy Coverage End of Policy Coverage Group Number Member ID Insurance Provider's Telephone Number Policy Ernst's Name Patient's Relationship to Policy Ernst BCBS [place] PREFERRED PROVIDER ORGANIZAT ION (PPO) PSHB BAS SELF PLUS 1 Oct 02, 2024 [id number] JULIENKAREEM SCOTT PATIENT [place] F[place] PREFERRED PROVIDER ORGANIZAT ION (PPO) BASIC FAMIL Y Oct 06, 2007 [id number] KAREEM VICTORIAMolly PATIENT MEDICARE (WNR) MEDICARE (M) PART A Jul 02, 2017 PART A [id number] [phone] KAREEM VICTORIA PATIENT MEDICARE (WNR) MEDICARE (M) PART B Jul 02, 2017 PART B [id number] [phone] [id number] JULIENKAREEM CHAVEZ PATIENT Selected Encounter This section includes the information on record at [place] for the Encounter. Date/Time Encounter Type Encounter Description Reason Pro vider Source Nov 21, 2024 01:12 PM Outpatient Encounter ADMIN PAT ACTIVTIES (MASNONCT) IHE Encounter Template Text not used by [place] Plan of Treatment: Future Appointments (+ 6 months) and Future Tests (+/- 45 days) The Plan of Treatment section includes future care activities for the patient [facility] [place] [facility] This section includes future appointments and future orders which are active, pending or scheduled. Future Appointments This section includes appointments that were scheduled to occur 6 months from the date of the Encounter, up to a maximum of 20 appointments. The data comes from all [facility] facilities. Appointment Date/Time Appointment Type Appointme nt Facility Name Dec 05, 2024 02:00 PM AMBULATORY - PSYCHIATRY [facility] Dec 31, 2024 02:30 PM AMBULATORY - PSYCHIATRY [facility] Jan 07, 2025 01:00 PM AMBULATORY - PSYCHIATRY [facility] January 31, 2025 03:30 PM AMBULATORY - MEDICINE [place] Active, Pending, and Scheduled Orders This section includes a listing of several types of active, pending, and scheduled orders, including clinic medications orders, diagnostic test orders, procedure orders and consult orders; where the start date of the order is 45 days before the date of the Encounter or 45 days after the date of theEncounter. The data comes from all [facility]. Test Date/Time Test Type Test Details Facility Name Dec 31, 2024 02:47 PM Consult Order BHIP PSYCH IATRIC MEDICATION/SOPC OUTPT Cons Table Worker's Choice [facility] Social History: Smoking Status (Most current) and Tobacco Use (All prior to encounter date) This section includes the most current, and the historical, smoking and tobacco- related health factors from the [place] facility where the Encounter took place. Current Smoking Status This section includes the most current smoking, or tobacco-related health factor, from the [place] facility where the Encounter took place. Date/Time Current Smoking Status Comment Roxana dooley May 23, 2023 12:03 PM [place]-TOBACCO QUIT 5 TO < 15 YRS [facility] Tobacco Use History This section includes a history of the smoking, or tobacco-related health factors, that were collected on or before the date of the Encounter. The data comes from the [place] facility where the Encounter took place. Date/Time Smoking Status/Tobacco Use Comment F acility May 23, 2023 12:03 PM [place]-TOBACCO QUIT 5 TO < 15 YRS [facility] Encounter Notes: All associated encounter notes This section contains the clinical notes associated to the Encounter. Date/Time Encounter Note(s) Provider Source Nov 21, 2024 01:12 PM PHARMACY NOTE: LOCAL TITLE: PHARMACY CUSTOMER CARE MEDICATION RENEWAL STANDARD TITLE: PHARMACY NOTE DATE OF NOTE: NOV 21, 2024@13:12 ENTRY DATE: NOV 21, 2024@13:12:12 AUTHOR: MADAY GRAHAM EXP COSIGNER: URGENCY: STATUS: COMPLETED Date: Nov Division: [facility] referred by Pharmacy Call Center for medication renewal: Non-controlled/maintenanc e medication Medications requested: [id number] MIRTAZAPINE 30MG TAB Defer to specialty clinic To be mailed . Please review and renew if appropriate. *This note was generated by [facility] Pharmacy Customer Care. If you have any questions or need assistance, do not contact this author. Please refer all questions to your local, on-site pharmacy departments. /mando/ MADAY GRAHAM CPhT [place], [place]/PHARMACY CUSTOMER CARE Signed: 11/21/2024 13:12 Receipt Acknowledged By: 11/21/2024 14:22 /mando/ MADAY LEWIS M.D. [facility]
--- OUTSIDE RECORDS SUMMARY | 2025-02-14 18:24 | XMS_ITS ---
Author Name [facility] [facility] [place] [facility] [place] Address [address] [place] [address] Care Team Providers Care Precision Machinist Name Role Phone TRINITY MONTENEGRO Primary Care [...] SELF PLUS 1 Oct 02, 2024 33C [id number] KAREEM WARNER PATIENT [place] PREFERRED PROVIDER ORGANIZAT ION (PPO) BASIC FAMIL Y Oct 06, 2007 [id number] 50 KAREEM WARNERMolly PATIENT MEDICARE (WNR) MEDICARE (M) PART B Jul 02, 2017 PART B [id number] [phone] [id number] KAREEM WARNER PATIENT MEDICARE (WNR) MEDICARE (M) PART A Jul 02, 2017 PART A [id number] JULIENKAREEM CHAVEZ PATIENT Selected Encounter This section includes the information on record at [place] for the Encounter. Date/Time Encounter Type Encounter Description Reason Pro vider Source February 10, 2025 08:30 AM Outpatient Encounter ADMIN PAT ACTIVTIES (MASNONCT) IHE Encounter Template Text not used by [place] Plan of Treatment: Future Appointments (+ 6 months) and Future Tests (+/- 45 days) The Plan of Treatment section includes future care activities for the patient from all [place] treatmentfacilities. This section includes future appointments and future orders which are active, pending or scheduled. Active, Pending, and Scheduled Orders This section includes a listing of several types of active, pending, and scheduled orders, including clinic medications orders, diagnostic test orders, procedure orders and consult orders; where the start date of the order is 45 days before the date of the Encounter or 45 days after the date of theEncounter. The data comes from all [place] treatment facilities. Test Date/Time Test Type Test Details Facility Name Dec 31, 2024 02:47 PM Consult Order BHIP PSYCHIATRIC MEDICATION/SOPC OUTPT Cons Him Specialists's Choice [place] [facility] [place] [facility] February 12, 2025 12:00 AM Laboratory - Chemistry Order PSA BLOOD (SST-SERUM) [facility] February 12, 2025 12:00 AM Laboratory - Chemistry Order OCCULT BLOOD FIT X1 SCREEN(IN-HOUSE) STOOL FECES [facility] February 12, 2025 12:00 AM Laboratory - Chemistry Order BASIC METABOLIC PANEL (fasting) BLOOD (SST-SERUM) [facility] February 12, 2025 12:00 AM Laboratory - Chemistry Order LIPID PANEL FASTING BLOOD (SST-SERUM) [facility] February 12, 2025 12:00 AM Laboratory - Chemistry Order LIVER FUNCTION BLOOD (SST-SERUM) [facility] February 12, 2025 12:00 AM Laboratory - Chemistry Order CBC AND DIFF (AUTO) BLOOD (LAV-BLOOD) [facility] February 12, 2025 12:00 AM Laboratory - Chemistry Order HEMOGLOBIN A1C PANEL BLOOD (LAV-BLOOD) [facility] February 12, 2025 12:00 AM Laboratory - Chemistry Order TSH BLOOD (SST-SERUM) [facility] February 12, 2025 12:00 AM Laboratory - Chemistry Order MICROALBUMIN CREATININE RATIO PANEL URINE (RANDOM) [facility] February 12, 2025 12:00 AM Laboratory - Chemistry Order URINALYSIS URINE [facility] February 12, 2025 12:00 AM Laboratory - Chemistry Order CALCIUM BLOOD (SST-SERUM) [facility] February 12, 2025 12:00 AM Laboratory - Chemistry Order VITAMIN D (25-OH) BLOOD (SST-SERUM) [facility] February 12, 2025 12:00 AM Laboratory - Chemistry Order MAGNESIUM BLOOD (SST-SERUM) [facility] Social History: Smoking Status (Most current) and Tobacco Use (All prior to encounter date) This section includes the most current, and the historical, smoking and tobacco- related health factors from the [place] facility where the Encounter took place. Current Smoking Status This section includes the most current smoking, or tobacco-related health factor, from the [place] facility where the Encounter took place. Date/Time Current Smoking Status Comment Facil ity May 23, 2023 12:03 PM [place]-TOBACCO FORMER USER [facility] Tobacco Use History This section includes a history of the smoking, or tobacco-related health factors, that were collected on or before the date of the Encounter. The data comes from the [place] facility where the Encounter took place. Date/Time Smoking Status/Tobacco Use Comment F acility May 23, 2023 12:03 PM [place]-TOBACCO QUIT 5 TO < 15 YRS [facility] Encounter Notes: All associated encounter notes This section contains the clinical notes associated to the Encounter. Date/Time Encounter Note(s) Provider Source February 10, 2025 08:45 AM CAREGIVER CERTIFIC ATE: LOCAL TITLE: CSP DENIAL NOTE STANDARD TITLE: CAREGIVER CERTIFICATE DATE OF NOTE: FEBRUARY 10, 2025@08:45 ENTRY DATE: FEBRUARY 11, 2025@07:46:39 AUTHOR: ANNABELLE RANDALL EXP COSIGNER: URGENCY: STATUS: COMPLETED Caregiver Support Program Denial Note The individual being denied from the Program of Comprehensive Assistance for Family Caregivers is the : BRANDY WARNER Name of Primary Family Caregiver: Oriana Warner Reason(s) for denial: - /Caregiver withdrew application Denial date: 02/06/2025 Staff provided/attempted verbal notification of denial on: 02/10/2025 Notification letter was mailed on: 02/10/2025 [facility] staff provided the following document(s): - [facility] [place] Contact Information - Program of General Caregiver Support Services - VA and/or Community Resources Details: PGCSS - PCAFC Eligibility Criteria Fact Sheet - VA Caregiver Support Program PCAFC Appeal FAQs - VA Form 10-305 Your Rights to Seek Further Review of PCAFC Decisions [facility] staff provided information on the following resources and supports: - Other VA Services: CSP and [facility]orts /mando/ SOUMYA DE LA CRUZ TRANSCRIPTION TYPIST Signed: 02/11/2025 07:48 ANNABELLE RANDALL [facility] ([id number]) February 10, 2025 08:30 AM CAREGIVER CERTIFIC ATE: LOCAL TITLE: CSP ADMINISTRATIVE NOTE STANDARD TITLE: CAREGIVER CERTIFICATE DATE OF NOTE: FEBRUARY 10, 2025@08:30 ENTRY DATE: FEBRUARY 11, 2025@07:39:38 AUTHOR: ANNABELLE RANDALL EXP COSIGNER: URGENCY: STATUS: COMPLETED [place] and his daughter, primary caregiver, Oriana Warner, applied to the PCAFC Program. Radioisotope Technician received the following communication from daughter upon lyric writer's return from [place]: From: Oriana Warner < m> Sent: January 2:14 PM To: Annabelle Randall < > Subject: [EXTERNAL] Re: FW: Caregiver Support Program Jeramie Alanis, I hope you are having a wonderful . I want to cancel our appointment and withdraw my application for caregiver. I spoke with my Dad and we are going to get him a neuropsych via the VA. From there, I'll reapply with that information. Thank you for all of your help, kindness and time. I truly appreciate it and am sorry for any inconvenience. Plan: Per [place] and daughter's request, lyric writer will withdraw dyad's 10-10CG application for the PCAFC Program. /mando/ SOUMYA DE LA CRUZ TRANSCRIPTION TYPIST Signed: 02/11/2025 07:43 ANNABELLE RANDALL [facility] ([id number])
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
--- OUTSIDE RECORDS SUMMARY | 2025-02-14 18:24 | XMS_ITS | Encounter Summary ---
Author Name [facility] [place] [place] [facility] [place] Organization [facility] [place] Address [address] [place] [id number] Care Team Providers Care Home Health Speech Therapist Name Role Phone TRINITY MONTENEGRO Primary Care [...] SELF PLUS 1 Oct 02, 2024 33C [id number] 50 KAREEM VICTORIA PATIENT [place] PREFERRED PROVIDER ORGANIZAT ION (PPO) BASIC FAMIL Y Oct 06, 2007 112 [id number] 50 KAREEM VICTORIAMolly PATIENT MEDICARE (WNR) MEDICARE (M) PART A Jul 02, 2017 PART A [id number] KAREEM VICTORIA PATIENT MEDICARE (WNR) MEDICARE (M) PART B Jul 02, 2017 PART B [id number] KAREEM VICTORIAMolly PATIENT Selected Encounter This section includes the information on record at [place] for the Encounter. Date/Time Encounter Type Encounter Description Reason Pro vider Source IHE Encounter Template Text not used by [place]
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
--- OUTSIDE RECORDS SUMMARY | 2025-02-14 18:24 | XMS_ITS | Encounter Summary ---
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 Date/Time Encounter Type Encounter Description Reason Provider Source Oct 10, 2024 01:30 PM OFFICE O/P EST LOW 20 [facility] - IND ICD-10-CM F43.10 Post-traumatic stress disorder, unspecified FLORES STEVENS Geraldo Encounter Template Text not used by CT Assessments - Encounter Diagnoses This section includes the primary and secondary diagnoses documented for the Encounter. Date/Time Primary/Secondary Diagnosis Diagnosis Name Provider Source Oct 10, 2024 01:47 PM PRIMARY Post-traumatic stress disorder, unspecified FLORES STEVENS BRE Oct 10, 2024 01:47 PM SECONDARY Insomnia, unspecified FLORES STEVENS BRE Oct 10, 2024 01:47 PM SECONDARY Major depressive disorder, single episode, moderate FLORES STEVENS BRE Plan of Treatment: Future Appointments (+ 6 months) and Future Tests (+/- 45 days) The Plan of Treatment section includes future care activities for the [facility] [place] [facility] This section includes future appointments and future orders which are active, pending or scheduled. Future Appointments This section includes appointments that were scheduled to occur 6 months from the date of the Encounter, up to a maximum of 20 appointments. The data comes from all [facility]. Appointment Date/Time Appointment Type Appointme nt Facility Name Oct 15, 2024 01:00 PM AMBULATORY - PSYCHIATRY [facility] Oct 31, 2024 01:00 PM AMBULATORY [facility]CHIATRY [facility] Dec 05, 2024 02:00 PM AMBULATORY [facility]RY [facility] Dec 31, 2024 02:30 PM AMBULATORY PSYCHIATRY [facility] Jan 07, 2025 01:00 PM AMBULATORY PSYCHIATRY [facility] January 31, 2025 03:30 PM AMBULATORY - MEDICINE [facility] Active, Pending, and Scheduled Orders This section includes a listing of several types of active, pending, and scheduled orders, including clinic medications orders, diagnostic test orders, procedure orders and consult orders; where the start date of the order is 45 days before the date of the Encounter or 45 days after the date of theEncounter. The data comes from all [facility]. Test Date/Time Test Type Test Details Facility Name Sep 02, 2024 12:00 AM Laboratory - Chemi stry Order OCCULT BLOOD FIT X1 SCREEN (MFP ONLY) STOOL FECES SP [place] Social History: Smoking Status (Most current) and Tobacco Use (All prior to encounter date) This section includes the most current, and the historical, smoking and tobacco- related health factors from the [place] facility where the Encounter took place. Current Smoking Status This section includes the most current smoking, or tobacco-related health factor, from the [place] facility where the Encounter took place. Date/Time Current Smoking Status Comment Facil ity Jun 28, 2024 01:00 PM VA-TOBACCO FORMER USER [place] Tobacco Use History This section includes a history of the smoking, or tobacco-related health factors, that were collected on or before the date of the Encounter. The data comes from the [place] facility where the Encounter took place. Date/Time Smoking Status/Tobacco Use Comment F acility Jun 28, 2024 01:00 PM VA-TOBACCO QUIT 15 YRS OR MORE [place] Encounter Notes: All associated encounter notes This section contains the clinical notes associated to the Encounter. Date/Time Encounter Note(s) Provider Source Oct 10, 2024 01:32 PM TELEHEALTH NOTE: LOCAL TITLE: CT VIDEO CONNECT PSYCHIATRIST NOTE STANDARD TITLE: TELEHEALTH NOTE DATE OF NOTE: OCT 10, 2024@13:32 ENTRY DATE: OCT 10, 2024@13:33:02 AUTHOR: FLORES STEVENS COSIGNER: URGENCY: STATUS: COMPLETED CT Video Connect (VVC) Standard Documentation VVC Clinician Resources Only: E911 (Emergency Call Relay Center): [phone] National Veterans Crisis Line - 988 then press #1. [facility] Suicide Coordinator [phone], Ext. [phone]; Back-up Ext. [phone] [place] Police, Katlyn KOROMA [phone] Introduction: Visit is being conducted by CT Amen.. identified with 2 identifiers: [X] Full Name [X] Date of [ ] VA ID Card Emergency Plan: [place] confirmed and/or provided the following information in case of emergency or technology failure. PATIENT PHONE - PHONE NUMBER [CELLULAR] - Is patient phone number correct, if not, enter below: [place]au's phone number: BRANDY Feliberto JULIEN [address] [place] [address], [phone] [place]au's present location and address for appointment: same as above 's emergency contact name and phone number: unchanged reported that location is private and safe: Yes Informed Consent: [place] informed of the risks and benefits of Telehealth video care. [place] has the right to refuse video services. If refuses video visit, a jece-dp-aerl visit will be scheduled. Álvaro verbalized consent for this video visit: Yes provided consent for any other persons present for visit: N/A If yes, who and relationship to patient: Secure visit: Visit was locked for security and privacy:Yes CHART REVIEW: seen for initial MH Consult 06/27/23 noting: Álvaro is a 72 yo male and [employer] [place]. Álvaro stated he served in [employer] from 1971 to 1972 and was then [...] Álvaro was born and raised in the [place] area, has high school degree and some college, worked 41 years with the [employer] service. Álvaro has a daughter who he [...] TIME OF INITIAL VISIT WITH MYSELF 09/11/23: Ch[place]au reports I want to be able to [...] don't want to do that, I'm very restoration. I don't do it. I try to [...] times within the last 3 months, at [facility] and discharged to [facility] to complete 6 weeks of IV antibiotic [...] there I could be homeless. HISTORY: Joined [employer] in 1971 and medically discharged in 1972 for chronic headaches. Total service was slightly under two years. 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 Legal: history of One arrest when I was 17 for drunk and disorderly INITIAL ASSESSMENT/ DIAGNOSIS AND RECOMMENDATIONS: [place]au presents with s/s MDD for the past several months coinciding with severe back pain/ surgery/ complications which apparently have caused a rupture in his marriage. There have been suicidal thoughts without plan or intent with strong restoration prohibitions, +RFL. He is open to starting an AD medication. PLAN: Start Lexapro and low dose doxepin to augment for mood/sleep/pain. Next visit increased Lexapro to 20mg daily NEXT VISIT NOTED: some decrement in mood recently likely due to anniversary of combat trauma, pain, concern about sister. Doxepin 1-2 x/night not helping. He reports in the past he did well on Seroquel 50-100mg QHS Rx by Jaz Sellers in [id number] and would like to try this again. Given failure on doxepin along with trazodone will OK re-trial on this. Continue Lexapro NEXT VISIT NOTED: increased Seroquel to 100 to 150mg QHS NOTED AT LAST OP VISIT: reports I'm doing a little bit better as far as dealing with things. Seroquel increase no different. Continues with same physical complaints, has not made an appointment to see new PCP. Hx benefit from valium 10mg. A/P: mood seems somewhat improved but still not sleeping well despite increase in Seroquel to 100 to 150mg QHS. Therefore will stop this and have him try increasing trazodone to 100-200mg QHS; continue Lexapro. I'm reluctant to give him a benzo given his age and comorbidities. --------- -- PRESENTING SYMPTOMS AND CONDITION ON TODAY'S VISIT: [place]au reports I've had a bad stretch as far as sleeping. The meds are doing much except for the mood one. That one still works. REVIEW OF SYSTEMS MENTAL HEALTH: SLEEP: poor, DFA/ SCD MOOD: no depression PTSD symptoms: having flashbacks ANXIETY: worried about sister ANGER/IRRITABILITY/AGGRESSION: none recently SUBSTANCE USE: Alcohol: denies Illegal/non-prescribed drugs: denies TOBACCO: Non-smoker SUPA/HYPOMANIA: None evident PSYCHOTIC FEATURES: None evident Suicidal Thoughts/Intent/plan: denied Social Status/ Stressors: weather limits his activity CURRENT PSYCH meds: Lexapro 20mg, Trazodone 200mg QHS ADVERSE EFFECTS: none reported MED REC: hydromorphone 4mg TID, cyclobenzaprine 5mg VS: 12/12/2023 99.2 88 166/89 WT 248 BMI 33 MENTAL STATUS EXAMINATION - Appearance and behavior: n/a due to video issues - Speech and language: without impairment of [...] CONDITION AND OVERALL PROGRESS TOWARD TREATMENT GOALS: mood seems somewhat improved but still not sleeping well despite increasing trazodone to 100-200mg QHS. We agreed to try switching to mirtazapine; will continue Lexapro i. Severity of Illness: ()none ()mild (x )moderately ill ()severely ill ()very severely ill ii. Global Improvement: ()very much ( )much ( x)min ()none ()min worse ()much worse ()very much worse iii. RISK ASSESSEMENT: currently (x) no evidence of acute risk, though passive wishes are present. He promises to contact me if SI becomes more active () elevated based on: () acute risk [...] for a follow-up appointment with myself in: 8 weeks, sooner if needed Additional Follow-Up instructions: 1. Reinforced: If urgent treatment is needed, call [phone] or go to the nearest Emergency Room 2. To schedule or change an appointment, inquire about medication refills, etc: call office number during normal office hours Diagnoses: History of post-traumatic stress disorder ([place]CT [id number]) - Post- traumatic stress disorder, unspecified (ICD-10-CM F43.10) (Primary) Major depression, single episode (SCT [id number]) - Major depressive disorder, single episode, moderate (ICD-10-CM F32.1) Insomnia (SCT 234382634) - Insomnia, unspecified (ICD-10-CM G47.00) /mando/ FLORES STEVENS M.D. Signed: 10/10/2024 13:47 FLORES STEVENS
--- OUTSIDE RECORDS SUMMARY | 2025-02-14 18:25 | XMS_ITS | Encounter Summary ---
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 Date/Time Encounter Type Encounter Description Reason Pro vider Source Dec 13, 2024 02:30 PM Outpatient Encounter PRIMARY CARE/MEDICINE [facility] Encounter Template Text not used by [place] Plan of Treatment: Future Appointments (+ 6 months) and Future Tests (+/- 45 days) The Plan of Treatment section includes future care activities for the patient from all [place] [facility]. This section includes future appointments and future orders which are active, pending or scheduled. Future Appointments This section includes appointments that were scheduled to occur 6 months from the date of the Encounter, up to a maximum of 20 appointments. The data comes from all [facility]. Appointment Date/Time Appointment Type Appointme nt Facility Name Dec 31, 2024 02:30 PM AMBULATORY - PSYCHIATRY [facility] Jan 07, 2025 01:00 PM AMBULATORY - PSYCHIATRY [facility] January 31, 2025 03:30 PM [facility]ORY - MEDICINE [facility] Active, Pending, and Scheduled Orders This section includes a listing of several types of active, pending, and scheduled orders, including clinic medications orders, diagnostic test orders, procedure orders and consult orders; where the start date of the order is 45 days before the date of the Encounter or 45 days after the date of theEncounter. The data comes from all [facility]. Test Date/Time Test Type Test Details Facility Name Dec 31, 2024 02:47 PM Consult Order BHIP PSYCH IATRIC MEDICATION/SOPC OUTPT Cons Brand Ambassador Promotional Model's Choice [facility] Social History: Smoking Status (Most current) and Tobacco Use (All prior to encounter date) This section includes the most current, and the historical, smoking and tobacco- related health factors from the [place] facility where the Encounter took place. Current Smoking Status This section includes the most current smoking, or tobacco-related health factor, from the [place] facility where the Encounter took place. Date/Time Current Smoking Status Comment Roxana ity Jun 28, 2024 01:00 PM [place] FORMER USER [place] Tobacco Use History This section includes a history of the smoking, or tobacco-related health factors, that were collected on or before the date of the Encounter. The data comes from the [place] facility where the Encounter took place. Date/Time Smoking Status/Tobacco Use Comment F acility Jun 28, 2024 01:00 PM [place]-TO[place] QUIT 15 YRS OR MORE [place] Encounter Notes: All associated encounter notes This section contains the clinical notes associated to the Encounter. Date/Time Encounter Note(s) Provider Source Dec 06, 2024 04:22 PM ADMINISTRATIVE NOT E: LOCAL TITLE: ADMINISTRATIVE NOTE STANDARD TITLE: ADMINISTRATIVE NOTE DATE OF NOTE: DEC 06, 2024@16:22 ENTRY DATE: DEC 06, 2024@16:22:13 AUTHOR: OTILIA MILLAN COSIGNER: URGENCY: STATUS: COMPLETED [facility] [address] [place] [id number] [phone] * [phone] * BRANDY VICTORIA [address] [place] [address] Date: DEC 06, 2024 re: This is a reminder of your upcoming PCP appt with TRINITY MONTENEGRO. Appointment Date: Nov@14:30 Appointment Type: In-person visit Fasting blood work NON fasting blood work LEFT MESSAGE ON HOME NUMBER TO CONFIRM APPT Sincerely, Office Staff for: TRINITY MONTENEGRO Primary Care Provider [facility] [address] [place] [address] T [phone] F [phone] Upcoming Appointments: 12/12/2024 14:00 SPR MHC SW 1 12/13/2024 14:30 SPR PACT 5 MD APPOINTMENT [facility] (SPOPC OR SO = [address]) (GOPC OR GO = [address]) ([facility] or NO = [facility]) (VVC - Video Call) (Tel-X Telephone Visit) (TH - Telehealth) /mando/ OTILIA COCHRAN Signed: 12/06/2024 16:22 OTILIA MILLAN
--- OUTSIDE RECORDS SUMMARY | 2025-02-14 18:25 | XMS_ITS | Patient Health Record ---
Author Organization Loco Wren III, MD Address [address] [place] [address] [place] [address] Care Team Providers Care Food Service Director Name Role Phone Loco Wren Primary Care Provider [phone] Allergies Allergen (clinical drug ingredient) Drug/Non Drug Allergy documented on EMR Reaction Allergy Type Onset Date Status Penicillin Unknown Drug Allergy Active lorazepam Ativan Unknown Drug Allergy Active amoxicillin Amoxicillin Unknown Drug Allergy Act ange Allergic to insects (uncoded) Unknown Allergy Active Reason For Referral No Information Medications Medication SIG (Take, Route, Frequency, Duration) Notes Start Date End Date Status Mirtazapine 45 MG 1 tablet Orally at b ed time for 90 days Active amLODIPine Besylate 10 MG 1 tablet Orall y Once a day for 90 days Active hydroCHLOROthiazide 25 MG 1 tablet in th e morning Orally Once a day for 90 days Active Potassium Chloride ER 10 MEQ 1 tablet wi th food Orally Once a day for 90 days Active oxyCODONE HCl 15 MG TAKE 1 TABLET BY BRITTANY TH EVERY 6 HOURS NEEDED FOR SEVERE PAIN. MAY FILL LESSER QUANTITY Oral Active Dorzolamide HCl 2 % 1 drop into affected eye Ophthalmic Three times a day Active Aspirin Adult Low Dose 81 MG 1 tablet Or ally Once a day Active Immunizations Vaccine Route Administration Date Status Comme nts Influenza Unknown 07/05/2017 Administered Influenza no Preserv 3 and > IM Intramuscular 08/21/2019 Administered Social History Tobacco Use: Social History Observation Description Date Details (start date - stop date) Former Smoker NA - NA Sex Assigned At : Social History Observation Description Sex Assigned At Male Tobacco Use/Smoking Question Answer Notes Patient is a former smoker How long has it been since you last smoked? > 10 years Additional Findings: Tobacco Non-User Ex-cigaret te smoker Alcohol Screen Question Answer Notes Did you have a drink containing alcohol in the p ast year? No Points 0 Interpretation Negative Problems Problem Type SNOMED Code ICD Code Onset Dates Problem Status W/U Status Risk Notes Problem 7159688 Former smoker (Z87.891) Active confirmed He says he is motivated not to smoke. We discussed a plan to prevent relapse in times of stress and illness. Problem Hypertension (89401127) Hypertension (I10) Active confirmed His blood pressure today is stable. I recommended continued aggressive weight loss and sodium restriction. No change in his medications was needed.We had a long discussion which his daughter was present about the importance of compliance with medication and treatment. He will continue to receive Primary care at the [facility] as well as here. Problem 337109853 Other obesity (E66.8) Active confirmed He has lost 11 pounds and is no longer morbidly obese. We discussed his weight loss strategy. We will continue to try to lose weight. Problem Chronic pain syndrome (706728347) Chronic pain syndrome (G89.4) Active confirmed He continues flith pain management by Dr. Gaines. He continues to have a supply of Percocet. He says the pain is unchanged. Problem 609541426 Degenerative joint disease (DJD) of lumbar spine (M47.816) Active confirmed He has had a n improvement in the pain with the decompression surgery. He was encouraged to continue weight loss. The wound is healing well. Problem 50531105 Degenerative disc disease, cervical (M50.30) Active confirmed Recent radiographic studies showed cord impingement in this area. He will undergo a surgical procedure. He is medically cleared for this procedure without general anesthesia. Problem Hypercholesterole makenzie (00692258) Hypercholestero lemia (E78.0) Active confirmed His fasting lipid profile will be checked periodically. Problem migraine (disorder) (90919698) Migraines (G43.909) Active confirmed He has not had a severe migraine headache in a long time. He will continue on his current regimen. Problem Carpal tunnel syndrome (70109228) Carpal tunnel syndrome (G56.00) Active confirmed This discomfort is mild. It is not a major complaint today. No change in the status has occurred. Problem 017193746 Thyroid nodule (E04.1) Active confirmed The biopsy of the thyroid nodule showed no malignancy. Observation is in progress. He is euthyroid. Problem 47018558 Posttraumatic stress disorder (F43.10) Active confirmed He is coping fairly well at this time with stress in his life. I have discussed weight loss with him another stress reduction techniques will be employed. Problem Diarrhea (20442357) Diarrhea (R19.7) Active confirmed He has been having occasional diarrhea which he attributes to long-term antibiotic use. If this continues he will need a stool culture a gastroenterology consultation. Problem 62894256 Hyperlipidemia, unspecified hyperlipidemia type (E78.5) Active confirmed No recent blood work is available. No change was made to his medications. Comprehensive blood work with a fasting lipid profile was ordered. Problem 692928077 Morbid obesity (E66.01) Active confirmed He has gained 8 pounds. We discussed his weight loss strategy. We devised a plan to lose weight at a rate of one half of a pound per week to a diet restricted in fact calories and sodium. I have offered to refer him to the weight-loss program at [facility]. He is going to consider this. Problem 33294864 Degenerative disc disease, thoracic (M51.34) Active confirmed The back pain today is due to muscle spasm on either side of the thoracic spine. I have given him some cyclobenzaprine. Problem Lower urinary tract symptoms due to benign prostatic hypertrophy (00065737837552) Benign prostatic hyperplasia with lower urinary tract symptoms (N40.1) Active confirmed He is experiencing nocturia once a night on the average. We discussed lifestyle modifications away to reduce nocturia. Problem Hypercholesterole makenzie (81375569) Hypercholestero lemia (E78.00) Active confirmed Problem [id number] Paraspinal abscess (M46.20) Active confirmed The recent MRI of the spine shows this area is resolving. Vital Signs Heart Rate 76 /min 02/10/2025 Temperature 97.6 degrees Fahrenheit 02/10/2025 Blood pressure diastolic 76 mm Hg 02/10/2025 Height 71 in 02/10/2025 Blood pressure systolic 136 mm Hg 02/10/2025 Weight 255 lbs 02/10/2025 BMI 35.56 kg/m2 02/10/2025 Encounters Encounter Location Date Provider Diagnosis Loco Wren III, MD [address] [place] [address] [place] [id number] 02/10/2025 Loco Wren Chronic pain syndrom e G89.4 ; Hypertension I10 ; Diarrhea R19.7 ; Former smoker Z87.891 ; Posttraumatic stress disorder F43.10 ; Benign prostatic hyperplasia with lower urinary tract symptoms N40.1 ; Degenerative joint disease (DJD) of lumbar spine M47.816 ; Degenerative disc disease, cervical M50.30 ; Migraines G43.909 and Impacted cerumen of left ear H61.22 Loco Wren III, MD [address] [place] [address] [place] [address] 02/04/2025 Loco Wren Assessments Encounter Date Diagnosis (ICD Code) Assessment Notes Treatment Notes Treatment Clinical Notes 02/10/2025 Hypertension (ICD-10 - I10) His blood pressure today is stable. I recommended continued aggressive weight loss and sodium restriction. No change in his medications was needed.We had a long discussion which his daughter was present about the importance of compliance with medication and treatment. He will continue to receive Primary care at the [facility] as well as here. 02/10/2025 Chronic pain syndrome (ICD-10 - G89.4) He continues wiith pain management by Dr. Gaines. He continues to have a supply of Percocet. He says the pain is unchanged. 02/10/2025 Diarrhea (ICD-10 - R19.7) He has been having occasional diarrhea which he attributes to long-term antibiotic use. If this continues he will need a stool culture a gastroenterology consultation. 02/10/2025 Former smoker (ICD-10 - Z87.891) He says he is motivated not to smoke. We discussed a plan to prevent relapse in times of stress and illness. 02/10/2025 Posttraumatic stress disorder (ICD-10 - F43.10) He is coping fairly well at this time with stress in his life. I have discussed weight loss with him another stress reduction techniques will be employed. 02/10/2025 Benign prostatic hyperplasia with lower urinary tract symptoms (ICD-10 - N40.1) He is experiencing nocturia once a night on the average. We discussed lifestyle modifications away to reduce nocturia. 02/10/2025 Degenerative joint disease (DJD) of lumbar spine (ICD-10 - M47.816) He has had an improvement in the pain with the decompression surgery. He was encouraged to continue weight loss. The wound is healing well. 02/10/2025 Degenerative disc disease, cervical (ICD-10 - M50.30) Recent radiographic studies showed cord impingement in this area. He will undergo a surgical procedure. He is medically cleared for this procedure without general anesthesia. 02/10/2025 Migraines (ICD-10 - G43.909) He has not had a severe migraine headache in a long time. He will continue on his current regimen. 02/10/2025 Impacted cerumen of left ear (ICD-10 - H61.22) Come back in 1 week for warm water irrigation to remove the cerumen impaction. Plan Of Treatment Pending Test Test Name Order Date EKG 11/22/2022 PROFILE, FASTING (COMPREHENSIVE METABOLI C) 02/15/2019 PROFILE, FASTING (COMPREHENSIVE METABOLI C) 06/26/2018 PROFILE, FASTING (COMPREHENSIVE METABOLI C) 06/22/2021 PROFILE, FASTING (COMPREHENSIVE METABOLI C) 10/01/2018 PROFILE, FASTING (COMPREHENSIVE METABOLI C) 12/26/2017 PROFILE, FASTING (COMPREHENSIVE METABOLI C) 04/14/2021 PROFILE, FASTING (COMPREHENSIVE METABOLI C) 01/18/2021 PROFILE, FASTING (COMPREHENSIVE METABOLI C) 08/22/2023 PROFILE, FASTING (COMPREHENSIVE METABOLI C) 01/06/2020 PROFILE, FASTING (COMPREHENSIVE METABOLI C) 08/21/2019 PROFILE, FASTING (COMPREHENSIVE METABOLI C) 11/29/2021 PROFILE, RANDOM (COMPREHENSIVE METABOLIC ) 07/20/2021 PROFILE, RANDOM (COMPREHENSIVE METABOLIC ) 08/18/2020 PROFILE, RANDOM (COMPREHENSIVE METABOLIC ) 01/28/2022 HEMOGLOBIN A1C (GLYCOHEMOGLOBIN) 022 HEMOGLOBIN A1C (GLYCOHEMOGLOBIN) 019 HEMOGLOBIN A1C (GLYCOHEMOGLOBIN) 018 HEMOGLOBIN A1C (GLYCOHEMOGLOBIN) 021 HEMOGLOBIN A1C (GLYCOHEMOGLOBIN) 018 HEMOGLOBIN A1C (GLYCOHEMOGLOBIN) 020 HEMOGLOBIN A1C (GLYCOHEMOGLOBIN) 021 LIPID PANEL 08/21/2019 LIPID PANEL 01/18/2021 LIPID PANEL 02/15/2019 LIPID PANEL 06/26/2018 LIPID PANEL 12/26/2017 LIPID PANEL 10/01/2018 LIPID PANEL 06/22/2021 LIPID PANEL 08/18/2020 LIPID PANEL 01/06/2020 PSA, TOTAL 01/06/2020 PSA, TOTAL 01/28/2022 PSA, TOTAL 08/21/2019 PSA, TOTAL 11/29/2021 PSA, TOTAL 04/14/2021 PSA, TOTAL 06/26/2018 PSA, TOTAL 08/22/2023 MICROALBUMIN, RANDOM 11/29/2021 MICROALBUMIN, RANDOM 06/26/2018 CBC w DIFF 08/22/2023 CBC w DIFF 08/18/2020 CBC w DIFF 06/26/2018 CBC w DIFF 01/18/2021 CBC w DIFF 07/20/2021 CBC w DIFF 01/06/2020 CBC w DIFF 01/28/2022 CBC w DIFF 08/21/2019 CBC w DIFF 11/29/2021 CBC w DIFF 02/15/2019 CBC w DIFF 12/26/2017 CBC w DIFF 10/01/2018 CBC w DIFF 06/22/2021 CBC w DIFF 04/14/2021 PROTHROMBIN TIME (PT, INR) 07/20/2021 PARTIAL THROMBOPLASTIN TIME (PTT) 2020 CULTURE, STOOL 02/10/2025 XR CHEST 2 VIEW PA & LAT 08/18/2020 XR DORSAL THORACIC SPINE 12/09/2019 US THYROID 07/12/2016 VITAMIN D 25-OH TOTAL 12/26/2017 VITAMIN D 25-OH TOTAL 01/18/2021 PFT with DLCO and Blood Gases 08/18/2020 Lipid Panel 04/14/2021 Lipid Panel 08/22/2023 Lipid Panel 11/29/2021 Next Appt Details Provider Name:Loco Wren, 02/19/2025 02:45:00 PM, [address] [place] [address] KIRSTEN ESCOBAR, [place], [id number], Insurance Providers Payer Name Payer Address Payer Phone Subscriber Number Group Number Insured Name Patient Relationship to Insured Coverage Start Date Coverage End Date MEDICARE NGS [address] [place] [address] [id number] BRANDY WARNER Self - patient is the insured [address] [facility] [address] [place], [place] [phone] [id number] BRANDY WARNER Self - patient is the insured Medical (General) History Medical History History ICD Code Chronic migraine 346.70 former smoker 2010 obesity PTSD from service in the [employer] essential hypertension chronic pain from degenerative disks cer vical thoracic and lumbar spine herniated disc L4-S1 2 herniated disks thoracic spine 6 herniated disks cervical spine bilateral carpal tunnel syndrome episode of renal disease at [facility] al incomplete rilght bundle branch block Surgical History Surgery Date(Month/Year) Vertebra spacer 07/2021 right elbow surgery carpal tunnel syndrome left hand epidoral placement 01/2019 L5-S1 surgery 07/25/2017 pilonidal cyst surgery teenager needle biopsy of left thyroid [facility] negati ve 09/2016 colonoscopy over5 years ago right carpal tunnel surgery, [facility], Dr. Palumbo,NEOS, no abnormal bleeding 2014 Hospitalization History Reason Date(Month/Year)
--- OUTSIDE RECORDS SUMMARY | 2025-02-14 18:25 | XMS_ITS | Encounter Summary ---
Author Name [facility] [place] Organization [facility] [place] [place] Address [address] [place] [id number] Care Team Providers Care Automation Qa Tester Name Role Phone TRINITY MONTENEGRO Primary Care [...] SELF PLUS 1 Oct 02, 2024 33C [id number] KAREEM VICTORIA PATIENT [place] PREFERRED PROVIDER ORGANIZAT ION (PPO) BASIC FAMIL Y Oct 06, 2007 112 [id number] 50 KAREEM VICTORIAMolly PATIENT MEDICARE (WNR) MEDICARE (M) PART A Jul 02, 2017 PART A [id number] KAREEM VICTORIA PATIENT MEDICARE (WNR) MEDICARE (M) PART B Jul 02, 2017 PART B [id number] KAREEM VICTORIAMolly PATIENT Selected Encounter This section includes the information on record at [place] for the Encounter. Date/Time Encounter Type Encounter Description Reason Provider Source January 31, 2025 03:30 PM OFFICE O/P EST LOW 20 MIN PRIMARY CARE/MEDICINE ICD-10-CM I16.0 Hypertensive urgency TRINITY POLLOCK Geraldo Encounter Template Text not used by [place] Assessments - Encounter Diagnoses This section includes the primary and secondary diagnoses documented for the Encounter. Date/Time Primary/Secondary Diagnosis Diagnosis Name Provider Source February 01, 2025 12:25 PM PRIMARY Hypertensive urgency TRINITY LISA [facility] Plan of Treatment: Future Appointments (+ 6 months) and Future Tests (+/- 45 days) The Plan of Treatment section includes future care activities for the patient from all [place] treatmentfacilities. This section includes future appointments and [...] of theEncounter. The data comes from all [place] treatment facilities. Test Date/Time Test Type Test Details Facility Name Dec 31, 2024 02:47 PM Consult Order BHIP PSYCHIATRIC MEDICATION/SOPC OUTPT Cons Vehicle Assembly Inspector's Choice [place] [facility] February 12, 2025 12:00 AM Laboratory - Chemistry Order PSA BLOOD (SST-SERUM) [facility] February 12, 2025 12:00 AM Laboratory - Chemistry Order OCCULT BLOOD FIT X1 SCREEN(IN-HOUSE) [facility] February 12, 2025 12:00 AM Laboratory - Chemistry Order BASIC METABOLIC PANEL (fasting) BLOOD (SST-SERUM) [facility] February 12, 2025 12:00 AM Laboratory - Chemistry Order LIPID PANEL FASTING BLOOD (SST-SERUM) [facility] February 12, 2025 12:00 AM Laboratory - Chemistry Order CBC AND DIFF (AUTO) BLOOD (LAV-BLOOD) [facility] February 12, 2025 12:00 AM Laboratory - Chemistry Order LIVER FUNCTION BLOOD (SST-SERUM) [facility] February 12, 2025 12:00 AM Laboratory - Chemistry Order HEMOGLOBIN A1C PANEL BLOOD (LAV-BLOOD) [facility] February 12, 2025 12:00 AM Laboratory - Chemistry Order TSH BLOOD (SST-SERUM) [facility] February 12, 2025 12:00 AM Laboratory - Chemistry Order MICROALBUMIN CREATININE RATIO PANEL URINE (RANDOM) [facility] February 12, 2025 12:00 AM Laboratory - Chemistry Order URINALYSIS URINE [facility] February 12, 2025 12:00 AM Laboratory - Chemistry Order CALCIUM BLOOD ([facility]) [facility] February 12, 2025 12:00 AM Laboratory - Chemistry Order VITAMIN D (25-OH) BLOOD (SST-SERUM) [facility] February 12, 2025 12:00 AM Laboratory - Chemistry Order MAGNESIUM BLOOD ([facility]-SERUM) [facility] Vital Signs: All taken on the encounter date This section contains inpatient and outpatient Vital Signs collected on the date of the Encounter. Date/Time Temperature Pulse Blood Pressure Respiratory Rate SP02 Pain Height Weight Body Mass Index Source January 31, 2025 04:22 PM 98 [facility] January 31, 2025 04:03 PM 99.[address] [facility] Social History: Smoking Status (Most current) and Tobacco Use (All prior to encounter date) This section includes the most current, and the historical, smoking and tobacco- related health factors from the [place] facility where the Encounter took place. Current Smoking Status This section includes the most current smoking, or tobacco-related health factor, from the [place] facility where the Encounter took place. Date/Time Current Smoking Status Comment Facil ity Jun 28, 2024 01:00 PM VA-TOBACCO FORMER USER [facility] Tobacco Use History This section includes a history of the smoking, or tobacco-related health factors, that were collected on or before the date of the Encounter. The data comes from the [place] facility where the Encounter took place. Date/Time Smoking Status/Tobacco Use Comment F acstan Jun 28, 2024 01:00 PM AR-TOBACCO QUIT 15 YRS OR MORE [facility] Encounter Notes: All associated encounter notes This section contains the clinical notes associated to the Encounter. Date/Time Encounter Note(s) Provider Source January 31, 2025 03:30 PM PHYSICIAN NOTE: LOCAL TITLE: NOTE STANDARD TITLE: PHYSICIAN NOTE DATE OF NOTE: JANUARY 31, 2025@15:30 ENTRY DATE: JANUARY 31, 2025@07:37:52 AUTHOR: Dwayne MONTENEGRO COSIGNER: URGENCY: STATUS: COMPLETED NOTE Has ADDENDA Pt is 74 y/o M with PMH of HTN, HL, COPD, chronic back pain, osteomyelitis last visit 12/2023 PCP is NON [place] -Dr Holger Hood - [phone] Other providers: -- Ophthalmology Sandie Day [phone] -- pain [facility] Eder Simmons -- Renal Dr Bone -- ID - OM and discitis- L3-L4 -- [facility] Patient here today accompanied by his daughter Denies any complaints Does not know what medication he takes Unclear if patient took his medications this morning No recent blood work Not seen by his non [place] primary care recently Patient's daughter would like to apply for caregiver program #HTN/HL Has not been monitoring blood pressure at home denies CP/SOB/DORMAN/palpitations/dizzi ness /claudication denies h/o RI, CVA #COPD asymptomatic w/o Rx #PTSD -follow with mental health at the [place] PAST MEDICAL HISTORY: -- Obesity -- HTN -- HL -- COPD -- PUD -- Osteomyelitis 2022 lumbar spine -- 09-29-2009: metal door hit him in the back of head, Onset 09/29/2009 -- Migraine Headache -- Herniated Discs: C 2 to C 6 -- Chronic Back Pain -- Osteoarthrosis, unspecified whether generalized or localized, involving unspecified site -- ED -- PTSD PAST SURGICAL HISTORY: --Arthroscopic surgery left shoulder 05/2000 --Rotator cuff bilateral --Elbow surgery --Carpal tunnel bilateral --Surgery for spinal stenosis 2019 Dr. Sanchez ALLERGIES: PENICILLIN, LEVITRA MEDICATIONS: pt does not know what meds he takes ESCITALOPRAM OXALATE 20MG TAB TAKE ONE TABLET BY MOUTH ACTIVE ONCE DAILY FOR MOOD/DEPRESSION Indication: FOR MAJOR DEPRESSIVE DISORDER MIRTAZAPINE 45MG TAB TAKE ONE TABLET BY MOUTH AT BEDTIME ACTIVE FOR DEPRESSION/MOOD Indication: FOR MAJOR DEPRESSIVE DISORDER Non-VA AMLODIPINE BESYLATE 10MG TAB 10MG BY MOUTH ONCE ACTIVE DAILY Indication: FOR HIGH BLOOD PRESSURE Non-VA BRIMONIDINE 0.2%/TIMOLOL 0.5% OPH SOLN 1 DROP INTO ACTIVE EACH EYE TWICE DAILY Indication: FOR INCREASED PRESSURE IN THE EYE Non-VA CLONIDINE HCL 0.1MG TAB 0.1MG BY MOUTH TWICE DAILY ACTIVE Indication: FOR HIGH BLOOD PRESSURE Non-VA CYCLOBENZAPRINE HCL TAB 5MG BY MOUTH THREE TIMES A ACTIVE DAY Indication: FOR MUSCLE SPASM Non-VA DORZOLAMIDE HCL 2% OPH SOLN 1 DROP INTO EACH EYE ACTIVE TWICE DAILY Indication: FOR INCREASED PRESSURE IN THE EYE Non-VA FUROSEMIDE 20MG TAB 20MG BY MOUTH ONCE DAILY ACTIVE Indication: FOR HIGH BLOOD PRESSURE Non-VA HYDROMORPHONE HCL 2MG TAB 2MG BY MOUTH ONCE DAILY ACTIVE NEEDED Indication: FOR PAIN Non-VA HYDROMORPHONE HCL 4MG TAB 4MG BY MOUTH THREE TIMES ACTIVE A DAY Indication: FOR PAIN Non-VA LISINOPRIL 5MG TAB 5MG BY MOUTH ONCE DAILY ACTIVE Indication: FOR HIGH BLOOD PRESSURE Non-VA NALOXONE HCL 4MG/SPRAY SOLN NASAL SPRAY 1 SPRAY ONE ACTIVE NOSTRIL ONE TIME NEEDED Indication: FOR OPIOID OVERDOSE Non-VA SIMVASTATIN 40MG TAB 20MG BY MOUTH ONCE DAILY ACTIVE Indication: FOR HIGH CHOLESTEROL Non-VA TRAZODONE HCL 100MG TAB 50MG BY MOUTH ONCE DAILY ACTIVE Indication: FOR INSOMNIA ASSOCIATED WITH DEPRESSION 14 Total Medications FAMILY HISTORY: --DM: Father and grandmother --Cancer: Father prostate cancer, 2 sisters breast cancer --RI: No --CVA: No SOCIAL HISTORY: [employer] --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 , 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 --Cohabitation: , lives with his --Children: one 34 y/o daughter --Diet: regular --Exercise: sedentary due to chronic back pain --EtOH: Rarely --Tob: Former smoker quit 2010, h/o 10 xPPDY --MJ: denies --Illicits:denies --Eye: Up-to-date --Dental: dentures --Hospitalizations: 2022 3x for osteomyelitis and discitis ROS: Constitutional: no fever/no chills, no ns Eyes: no decreased vision/blurry vision Ears/Nose/Throat: no hearing change Respiratory: no cough/wheezing/SOB Cardiovascular: no CP /palpitations/le edema Gastrointestinal: no abdominal pain/bloody/black stools :no dysuria/hematuria/trouble voiding MSK: LBP chronic + Neuro: no dizziness/H/A Skin: no pruritus/rash ambulates with a cane/walker PHYSICAL EXAM: Vital Signs: Blood Pressure: 202/97 (01/31/2025 16:03) repeat blood pressure 212/102 166/89 (12/12/2023 15:37) Patient weight: BMI 35 Pulse: 98 (01/31/2025 16:22) Respiration: 16 Temperature: 99.2 F [37.3 C] (01/31/2025 16:03) 267 lb [121.11 kg] (01/31/2025 16:03) 248 lb [112.49 kg] (12/12/2023 15:37) 259 lb [117.7 kg] (11/20/2008 08:04) maximum weight was 308 pounds, he lost 60 pounds (hospitalizations for osteomyelitis), GA: NAD, AOx3 cor: Tachycardic chest: CTA b/l abd NT, ND LE: no edema LABORATORY: No labs since 2009 ASSESSMENT/PLAN: Pt is 74 y/o M with PMH of HTN, HL, COPD, chronic back pain, osteomyelitis #HTN: Hypertensive urgency likely due to noncompliance with medications Patient asymptomatic. It is Monday afternoon. Lab is closed. Unclear if patient took his medications this morning. Unable to reconcile medications Daughter agreed to bring patient to ED for further evaluation and treatment Patient verbalized understanding and agrees to plan of care Comanagement - prefers to have most aspects of health maintenance, chronic condition(s) and medication management to non-VA PCP. Address at next visit: Hypertension Return to clinic to see me in 1 months, sooner PRN. Virtual ( ), F2F ( x ) ( )non fasting labs ordered prior to f/u ( x)fasting labs ordered prior to f/u ( )no labs needed ( )request labs from outside provider (x )request records from outside providers- -- Please obtain most recent non-VA PCP and infectious disease notes, once we obtain notes please schedule patient for follow-up with me with fasting blood work prior. Ask patient to bring all his medications to the next visit. Thank you HTN Assess for Elevated BP>=140/90: Repeat blood pressure: 212/102 The patient's medication regimen was adjusted to improve blood pressure control. Comment: pt to go to ED Medication Reconciliation: Outpatient: Medication Reconciliation was attempted at this encounter, but unable to complete: Patient/Caregiver unable to confirm all the medications the patient is taking. Avg Risk Colorectal Cancer Screen: AVERAGE RISK colorectal cancer screening is due based on information available to this clinical reminder CRC screen completed elsewhere and waiting for results. Results expected: Colonoscopy /mando/ TRINITY MONTENEGRO MD PHYSICIAN Signed: 02/01/2025 12:25 Receipt Acknowledged By: 02/03/2025 09:39 /mando/ ANA PAULA COCHARN 02/03/2025 ADDENDUM STATUS: COMPLETED MEDICAL RECORDS REQUESTED /mando/ ANA PAULA COCHRAN Signed: 02/03/2025 09:40 INGRID MONTENEGRO [facility]
--- OUTSIDE RECORDS SUMMARY | 2025-02-14 18:25 | XMS_ITS | Encounter Summary ---
Author Name [facility] [place] [facility] [place] Organization [facility] [place] Address [address] [place] [address] Care Team Providers Care Data Processor Name Role Phone TRINITY MONTENEGRO Primary Care [...] SELF PLUS 1 Oct 02, 2024 33C [id number] KAREEM VICTORIA PATIENT BCBS [place] PREFERRED PROVIDER ORGANIZAT ION (PPO) BASIC FAMIL Y Oct 06, 2007 112 [id number] 50 KAREEM VICTORIAMolly PATIENT MEDICARE (WNR) MEDICARE (M) PART A Jul 02, 2017 PART A [id number] KAREEM VICTORIA PATIENT MEDICARE (WNR) MEDICARE (M) PART B Jul 02, 2017 PART B [id number] KAREEM VICTORIAMolly PATIENT Selected Encounter This section includes the information on record at [place] for the Encounter. Date/Time Encounter Type Encounter Description Reason Provider Source Sep 12, 2024 02:30 PM OFFICE O/P EST LOW 20 MIN [facility] - IND ICD-10-CM F43.10 Post-traumatic stress disorder, unspecified FLORES STEVENS Geraldo Encounter Template Text not used by [place] Assessments - Encounter Diagnoses This section includes the primary and secondary diagnoses documented for the Encounter. Date/Time Primary/Secondary Diagnosis Diagnosis Name Provider Source Sep 12, 2024 02:53 PM PRIMARY Post-traumatic stress disorder, unspecified FLORES STEVENS BRE Sep 12, 2024 02:53 PM SECONDARY Insomnia, unspecified FLORES STEVENS BRE Sep 12, 2024 02:53 PM SECONDARY Major depressive disorder, single episode, moderate FLORES STEVENS Plan of Treatment: Future Appointments (+ 6 months) and Future Tests (+/- 45 days) The Plan of Treatment section includes future care activities for the patient from all [place] [facility]. This section includes future appointments and future orders which are active, pending or scheduled. Future Appointments This section includes appointments that were scheduled to occur 6 months from the date of the Encounter, up to a maximum of 20 appointments. The data comes from all [facility]. Appointment Date/Time Appointment Type Appointme nt Facility Name Oct 10, 2024 01:30 PM AMBULATORY - PS[facility]IATRY [facility] Oct 15, 2024 01:00 PM AMBULATORY PSYCHIATRY [facility] Oct 31, 2024 01:00 PM [facility] Dec 05, 2024 02:00 PM [facility] Dec 31, 2024 02:30 PM [facility] Jan 07, 2025 01:00 PM [facility] January 31, 2025 03:30 PM AMBULATORY - MEDICINE [facility] Active, Pending, and Scheduled Orders This section includes a listing of several types of active, pending, and scheduled orders, including clinic medications orders, diagnostic test orders, procedure orders and consult orders; where the start date of the order is 45 days before the date of the Encounter or 45 days after the date of theEncounter. The data comes from all [place] treatment facilities. Test Date/Time Test Type Test Details Facility Name Sep 02, 2024 12:00 AM Laboratory - Chemi stry Order OCCULT BLOOD FIT X1 SCREEN (MFP ONLY) STOOL FECES [facility] Social History: Smoking Status (Most current) and Tobacco Use (All prior to encounter date) This section includes the most current, and the historical, smoking and tobacco- related health factors from the [place] facility where the Encounter took place. Current Smoking Status This section includes the most current smoking, or tobacco-related health factor, from the [place] facility where the Encounter took place. Date/Time Current Smoking Status Comment Facil ity Jun 28, 2024 01:00 PM VA-TOBACCO FORMER USER [facility] Tobacco Use History This section includes a history of the smoking, or tobacco-related health factors, that were collected on or before the date of the Encounter. The data comes from the [place] facility where the Encounter took place. Date/Time Smoking Status/Tobacco Use Comment F acility Jun 28, 2024 01:00 PM VA-TOBACCO QUIT 15 YRS OR MORE [facility] Encounter Notes: All associated encounter notes This section contains the clinical notes associated to the Encounter. Date/Time Encounter Note(s) Provider Source Sep 12, 2024 02:32 PM TELEHEALTH NOTE: LOCAL TITLE: [place] VIDEO CONNECT PSYCHIATRIST NOTE STANDARD TITLE: TELEHEALTH NOTE DATE OF NOTE: SEP 12, 2024@14:32 ENTRY DATE: SEP 12, 2024@14:33:33 AUTHOR: FLORES STEVENS COSIGNER: URGENCY: STATUS: COMPLETED [facility] Video Connect (VVC) Standard Documentation VVC Clinician Resources Only: E911 (Emergency Call Relay Center): [phone] National Veterans Crisis Line - 988 then press #1. [facility] Suicide Coordinator [phone], Ext. [phone]; Back-up Ext. [phone] [place] Police, [place], [place] [phone] Introduction: Visit is being conducted by [place] [facility]. identified with 2 identifiers: [X] Full Name [X] Date of [ ] [place] ID Card Emergency Plan: confirmed and/or provided the following information in case of emergency or technology failure. PATIENT PHONE - PHONE NUMBER [CELLULAR] - Is patient phone number correct, if not, enter below: 's phone number: BRANDY VICTORIA [address] [place], [place], [address] 's present location and address for appointment: same as above 's emergency contact name and phone number: unchanged [place] reported that location is private and safe: Yes Informed Consent: informed of the risks and benefits of Telehealth video care. [place] has the right to refuse video services. If refuses video visit, a viou-qe-doeu visit will be scheduled. [place] verbalized consent for this video visit: Yes provided consent for any other persons present for visit: N/A If yes, who and relationship to patient: Secure visit: Visit was locked for security and privacy:Yes CHART REVIEW: seen for initial MH Consult 06/27/23 noting: Álvaro is a 72 yo male and [employer] [place]. Álvaro stated he served in [employer] from 1971 to 1972 and was then [...] Álvaro was born and raised in the [facility], has high school degree and some college, worked 41 years with the [employer] service. Álvaro has a daughter who he [...] be interested in meeting with a prescriber. [place] has screened positive for PTSD and depression. Negative for suicide. No apparent SI/HI concerns PRESENTATION AT TIME OF INITIAL VISIT WITH MYSELF 09/11/23: reports I want to be able to [...] don't want to do that, I'm very hoahaoism. I don't do it. I try to [...] times within the last 3 months, at [facility] and discharged to [facility] to complete 6 weeks of IV antibiotic [...] there I could be homeless. HISTORY: Joined [employer] in 1971 and medically discharged in 1972 for chronic headaches. Total service was slightly under two years. 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 Legal: history of One arrest when I was 17 for drunk and disorderly INITIAL ASSESSMENT/ DIAGNOSIS AND RECOMMENDATIONS: [place] presents with s/s MDD for the past several months coinciding with severe back pain/ surgery/ complications which apparently have caused a rupture in his marriage. There have been suicidal thoughts without plan or intent with strong hoahaoism prohibitions, +RFL. He is open to starting [...] 50-100mg QHS Rx by Jaz Sellers in [id number] and would like to try this again. Given failure on doxepin along with trazodone will OK re-trial on this. Continue Lexapro NOTED AT LAST OP VISIT: [place] reports I'm not too good. I've been having wicked dreams of what happened to me a while ago. I'm up half the night . Sister is not good. She only has a year . Medical I can't stop peeing or shitting . Seeing community PCP. PLAN: Will OK an increase in Seroquel to 100 to 150mg QHS Cautioned re risk of sedation/ hypotension. Continue Lexapro. Suggested he see his VA PCP for 2nd opinion regarding his various physical maladies. --------- -- PRESENTING SYMPTOMS AND CONDITION ON TODAY'S VISIT: [place] reports I'm doing a little bit better as far as dealing with things. Seroquel increase no different. Continues with same physical complaints, has not made an appointment to see new PCP. Hx benefit from valium 10mg REVIEW OF SYSTEMS MENTAL HEALTH: SLEEP: poor, c/o bad dreams people's heads being blown apart a few times a month, same as usual; otherwise wakes up often to urinate then has thoughts about experiences MOOD: see above PTSD symptoms: see above, worse this time of year, anniversary issue ANXIETY: worried about sister ANGER/IRRITABILITY/AGGRESSION: none recently SUBSTANCE USE: Alcohol: denies Illegal/non-prescribed drugs: denies TOBACCO: Non-smoker SUPA/HYPOMANIA: None evident PSYCHOTIC FEATURES: None evident Suicidal Thoughts/Intent/plan: denied but if it keeps going like this I will Denies active plan or intent Social Status/ Stressors: weather limits his activity CURRENT PSYCH meds: Lexapro 20mg, Seroquel 100mg QHS and 50mg prn AND trazodone 50mg from non-VA doc ADVERSE EFFECTS: none reported MED REC: hydromorphone [...] a benzo given his age and comorbidities. i. Severity of Illness: ()none ()mild (x [...] for a follow-up appointment with myself in: 4 weeks, sooner if needed Additional Follow-Up instructions: 1. Reinforced: If urgent treatment is needed, call [phone] or go to the nearest Emergency Room 2. To schedule or change an appointment, inquire about medication refills, etc: call office number during normal office hours Diagnoses: History of post-traumatic stress disorder ([facility] [id number]) - Post- traumatic stress disorder, unspecified (ICD-10-CM F43.10) (Primary) Major depression, single episode ([facility] [id number]) - Major depressive disorder, single episode, moderate (ICD-10-CM F32.1) Insomnia ([facility] [id number]) - Insomnia, unspecified (ICD-10-CM G47.00) /mando/ FLORES STEVENS M.D. Signed: 09/12/2024 14:54 FLORES STEVENS [facility]
--- OUTSIDE RECORDS SUMMARY | 2025-02-14 18:25 | XMS_ITS | Encounter Summary ---
Author Name [facility] [place] Organization [facility] [place] [facility] [place] Address [address] [place] [id number] Care Team Providers Care Warp Spooler Name Role Phone TRINITY MONTENEGRO Primary Care [...] SELF PLUS 1 Oct 02, 2024 33C [id number] KAREEM VICTORIA PATIENT [place] PREFERRED PROVIDER ORGANIZAT ION (PPO) BASIC FAMIL Y Oct 06, 2007 [id number] KAREEM VICTORIAMolly PATIENT MEDICARE (WNR) MEDICARE (M) PART A Jul 02, 2017 PART A [id number] KAREEM VICTORIAMolly PATIENT MEDICARE (WNR) MEDICARE (M) PART B Jul 02, 2017 PART B [id number] KAREEM VICTORIAMolly PATIENT Selected Encounter This section includes the information on record at [place] for the Encounter. Date/Time Encounter Type Encounter Description Reason Provider Source Mar 19, 2024 01:00 PM PSYTX W PT 60 MINUTES [facility] - IND ICD-10-CM F43.10 Post-traumatic stress disorder, unspecified PIPO BARRIGA Geraldo Encounter Template Text not used by [place] Assessments - Encounter Diagnoses This section includes the primary and secondary diagnoses documented for the Encounter. Date/Time Primary/Secondary Diagnosis Diagnosis Name Provider Source Apr 19, 2024 01:38 PM PRIMARY Post-traumatic stress disorder, unspecified PIPO BARRIGA BRE Apr 19, 2024 01:38 PM SECONDARY Depression, unspecified PIPO BARRIGA BRE Apr 19, 2024 01:38 PM SECONDARY Migraine, unsp, not intractable, without status migrainosus PIPO BARRIGAFIELD Plan of Treatment: Future Appointments (+ 6 months) and Future Tests (+/- 45 days) The Plan of Treatment section includes future care activities for the patient from all [place] treatmentfacilities. This section includes future appointments and future orders which are active, pending or scheduled. Future Appointments This section includes appointments that were scheduled to occur 6 months from the date of the Encounter, up to a maximum of 20 appointments. The data comes from all [place] treatment facilities. Appointment Date/Time Appointment Type Appointme nt Facility Name Apr 12, 2024 01:00 PM AM[place]ORY [place] [facility] [place] [facility] Apr 16, 2024 03:00 PM AM[place]UL[place] [facility] [place] [facility] May 03, 2024 01:00 PM AM[place]UL[place] [facility] [place] [facility] Jun 28, 2024 01:00 PM [place]UL[place] [facility] [place] [facility] Jul 02, 2024 03:00 PM [place]UL[place] [facility] [place] [facility] Aug 15, 2024 03:00 PM [place] [facility] [place] [facility] Aug 16, 2024 01:00 PM [place] [facility] [place] [facility] Sep 12, 2024 02:30 PM [place] [facility] [place] [facility] Encounter Notes: All associated encounter notes This section contains the clinical notes associated to the Encounter. Date/Time Encounter Note(s) Provider Source Mar 19, 2024 01:52 PM SOCIAL WORK NOTE: LOCAL TITLE: SOCIAL WORK NOTE STANDARD TITLE: SOCIAL WORK NOTE DATE OF NOTE: MAR 19, 2024@13:52 ENTRY DATE: MAR 19, 2024@13:53:05 AUTHOR: PIPO BARRIGA COSIGNER: JUANY CAMPBELL URGENCY: STATUS: COMPLETED INFORMED CONSENT REVIEWED: At beginning of session reviewed rights and limits of confidentiality, mandatory reporting situations, duty to warn and protect, Bean Warning, (if treatment team finds patient to be an acute danger to himself or others, that this information could be relayed to a court of law and presented to a health technician hearing), and DOD access for active duty service members. Provided Suicide Prevention Hotline number, and other contact numbers as necessary. VISIT DURATION 60 minutes DIAGNOSES: PTSD unspec, Depression unspec, migraine unspec VETERANS STATEMENT OF GOALS/CONCERNS: I was diagnosed with PTSD in 2004 and treated both in [place] and [place]. 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 SESSION FOCUS: [place] continued developing rapport and taking personal history. 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 requested that his daughter join him next session; Surveyor [employer] assured him that his daughter is welcome. stated that he feels it will be helpful to hear his daughter talk about how he has been as a father and in order to better understand what he has been through. [place] stated that he has been struggling with PTSD symptoms for decades and that he is interested in trying EMDR to address a traumatic event that took place during his service. INTERVENTIONS: Psychotherapeutic Interventions: Developing rapport, assessing presenting problems Psychoeducation reviewed: NA ASSESSMENT: BRIEF ASSESSMENT OF MENTAL STATUS: 1. [...] weekly individual supervision meeting. /mando/ PIPO BARRIGA LIP CUTTER Signed: 03/19/2024 14:01 /mando/ SOUMYA HALL Geospatial Systems Integrator Mental Health Cosigned: 03/19/2024 14:13 PIPO BARRIGA
--- OUTSIDE RECORDS SUMMARY | 2025-02-14 18:25 | XMS_ITS ---
Author Organization Loco Wren III, MD Address [address] [place] [address] [place] [address] Care Team Providers Care Plugging Machine Operator Name Role Phone Loco Wren Primary Care Provider REASON FOR VISIT Message Social History Sex Assigned At : Social History Observation Description Sex Assigned At Male Encounters Encounter Location Date Provider Diagnosis Loco Wren III, MD [address] [place] [address] [place] [address] 02/04/2025 Loco Wren Plan Of Treatment Next Appt Details Provider Name:Loco Wren, 02/19/2025 02:45:00 PM, [address] [place] [address] [place], [address], Progress Notes * BRANDY WARNER MDOB:[birth year] (74 yo M)Acc No.[id number]:02/04/2025 Patient:?BRANDY WARNER :1950???Age:74 Y???Sex:Male Address:[address] [place] [address] [place], [address] * true * Date:? Generated for Printi ng/Faxing/eTransmitting on:?02/14/2025 06:25 PM EDT
--- OUTSIDE RECORDS SUMMARY | 2025-02-14 18:25 | XMS_ITS | Encounter Summary ---
Author Name [facility] ([place]) Address [address] [place] [address] Care Team Providers Care Provider Enrollment Specialist Name Role Phone TRINITY MONTENEGRO Primary [...] SELF PLUS 1 Oct 02, 2024 33C [id number] [phone] KAREEM VICTORIA PATIENT [place] PREFERRED PROVIDER ORGANIZAT ION (PPO) BASIC FAMIL Y Oct 06, 2007 112 [id number] [phone] KAREEM VICTORIAMolly PATIENT MEDICARE (WNR) MEDICARE (M) PART A Jul 02, 2017 PART A [id number] KAREEM VICTORIAMolly PATIENT MEDICARE (WNR) MEDICARE (M) PART B Jul 02, 2017 PART B [id number] KAREEM VICTORIA SCOTT PATIENT Selected Encounter This section includes the information on record at [place] for the Encounter. Date/Time Encounter Type Encounter Description Reason Pro vider Source Dec 05, 2024 02:00 PM Outpatient Encounter [facility] - IND IHE Encounter Template Text not used by [place] Plan of Treatment: Future Appointments (+ 6 months) and Future Tests (+/- 45 days) The Plan of Treatment section includes future care activities for the patient [facility] [place] [facility] This section includes future appointments and future orders which are active, pending or scheduled. Future Appointments This section includes appointments that were scheduled to occur 6 months from the date of the Encounter, up to a maximum of 20 appointments. The data comes from all [facility]. Appointment Date/Time Appointment Type Appointme nt Facility Name Dec 31, 2024 02:30 PM AMBULATORY - PSYCHIATRY [facility] Jan 07, 2025 01:00 PM AMBULATORY - PSYCHIATRY [facility] January 31, 2025 03:30 PM AMBULATORY - MEDICINE [facility] Active, Pending, and Scheduled Orders This section includes a listing of several types of active, pending, and scheduled orders, including clinic medications orders, diagnostic test orders, procedure orders and consult orders; where the start date of the order is 45 days before the date of the Encounter or 45 days after the date of theEncounter. The data comes from all [facility]. Test Date/Time Test Type Test Details Facility Name Dec 31, 2024 02:47 PM Consult Order BHIP PSYCH IATRIC MEDICATION/SOPC OUTPT Cons [facility] Social History: Smoking Status (Most current) and Tobacco Use (All prior to encounter date) This section includes the most current, and the historical, smoking and tobacco- related health factors from the [place] facility where the Encounter took place. Current Smoking Status This section includes the most current smoking, or tobacco-related health factor, from the [place] facility where the Encounter took place. Date/Time Current Smoking Status Comment Roxana ity Jun 28, 2024 01:00 PM [place]-TOBACCO FORMER USER [place] Tobacco Use History This section includes a history of the smoking, or tobacco-related health factors, that were collected on or before the date of the Encounter. The data comes from the [place] facility where the Encounter took place. Date/Time Smoking Status/Tobacco Use Comment F acility Jun 28, 2024 01:00 PM OR-TOBACCO QUIT 15 YRS OR MORE [place] Encounter Notes: All associated encounter notes This section contains the clinical notes associated to the Encounter. Date/Time Encounter Note(s) Provider Source Dec 05, 2024 02:02 PM CLERICAL NOTE: LOCAL TITLE: APPOINTMENT NO SHOW STANDARD TITLE: CLERICAL NOTE DATE OF NOTE: DEC 05, 2024@14:02 ENTRY DATE: DEC 05, 2024@14:03:23 AUTHOR: MAXIMILIANO REYES EXP COSIGNER: URGENCY: STATUS: COMPLETED APPOINTMENT NO SHOW Has ADDENDA Patient Name: BRANDY VICTORIA Patient SSN: [id number] Date and time of Appointment No show : 12/05/24 14:00 PATIENT PHONE - [phone] PHONE NUMBER [CELLULAR] - Patient's medical record was reviewed. Follow-up actions were determined and initiated: Please check/complete as applies: [X]Telephoned Directly [ ]Re-scheduled for next available appt [X]Sent a N0-show letter ( must call for appointment) [ ]Other (Emergent/Overbook, etc.): Additional Comments: I called and left a VM asking him to contact this clinic to reschedule this missed visit Future Clinic Visits 12/12/2024 14:00 SPR MHC SW 1 12/13/2024 14:30 SPR PACT 5 /mando/ MAXIMILIANO REYES M.D. Signed: 12/05/2024 14:05 Receipt Acknowledged By: 12/05/2024 14:19 /mando/ NAN CALDERON ADVANCED SKIN SPECIALIST 12/05/2024 ADDENDUM STATUS: COMPLETED appt marked ns as requested and letter sent at this time. /mando/ NAN CALDERON ADVANCED SKIN SPECIALIST Signed: 12/05/2024 14:20 MAXIMILIANO REYES Dec 05, 2024 01:59 PM ACCOUNTING OF DISC LOSURES NOTE: LOCAL TITLE: STATE PRESCRIPTION DRUG MONITORING PROGRAM STANDARD TITLE: ACCOUNTING OF DISCLOSURES NOTE DATE OF NOTE: DEC 05, 2024@13:59:36 ENTRY DATE: DEC 05, 2024@13:59:36 AUTHOR: MAXIMILIANO REYES EXP COSIGNER: URGENCY: STATUS: COMPLETED This PDMP query was submitted by Maximiliano Reyes The clinical justification for this PDMP query is to review controlled substances prescribed outside of the [facility], and any additional information that may become available, as an important component of standard clinical care, and in accordance with [facility] policy. Patient information [facility] [place]. Prescription(s) filled outside the [facility] in the last 90 days are noted. However, they do not raise significant safety concerns and do not influence the treatment plan at this time. [place] recieved Oxycodone 15mg IR #60 monthly, except 2024 recieved 48 tabs /es/ MAXIMILIANO REYES M.D. Signed: 12/05/2024 13:59 MAXIMILIANO REYES [place]
--- OUTSIDE RECORDS SUMMARY | 2025-02-14 18:25 | XMS_ITS ---
Author Name [facility] [place] Organization [facility] [place] Address [address] [place] [address] Care Team Providers Care Senior Software Engineer Analytics Name Role Phone TRINITY MONTENEGRO Primary Care [...] SELF PLUS 1 Oct 02, 2024 33C [id number] [phone] JULIENKAREEM SCOTT PATIENT [employer] [place] PREFERRED PROVIDER ORGANIZAT ION (PPO) BASIC FAMIL Y Oct 06, 2007 112 [id number] JULIENKAREEM LETTYMolly PATIENT MEDICARE (WNR) MEDICARE (M) PART A Jul 02, 2017 PART A [id number] JULIENKAREEM LETTYMolly PATIENT MEDICARE (WNR) MEDICARE (M) PART B Jul 02, 2017 PART B [id number] JULIENKAREEM PATIENT Selected Encounter This section includes the information on record at [place] for the Encounter. Date/Time Encounter Type Encounter Description Reason Pro vider Source February 14, 2025 02:12 PM Outpatient Encounter [facility] Encounter Template Text not used by [place] Plan of Treatment: Future Appointments (+ 6 months) and Future Tests (+/- 45 days) The Plan of Treatment section includes future care activities for the patient from all [place] treatmentfacilities. This section includes future appointments and future orders which are active, pending or scheduled. Active, Pending, and Scheduled Orders This section includes a listing of several types of active, pending, and scheduled orders, including clinic medications orders, diagnostic test orders, procedure orders and consult orders; where thestart date of the order is 45 days before the date of the Encounter or 45 days after the date of the Encounter. The data comes from all [place] treatment facilities. Test Date/Time Test Type Test Details Facility Name Dec 31, 2024 02:47 PM Consult Order BHIP PSYCHIATRIC MEDICATION/SOPC OUTPT Cons [facility] [place] [facility] [place] [facility] February 12, 2025 12:00 AM Laboratory - Chemistry Order PSA BLOOD (SST-SERUM) [facility] February 12, 2025 12:00 AM Laboratory - Chemistry Order BASIC METABOLIC PANEL (fasting) BLOOD (SST-SERUM) [facility] February 12, 2025 12:00 AM Laboratory - Chemistry Order OCCULT BLOOD FIT X1 SCREEN(IN-HOUSE) STOOL FECES [facility] February 12, 2025 12:00 AM Laboratory - Chemistry Order LIPID PANEL FASTING BLOOD (SST-SERUM) [facility] February 12, 2025 12:00 AM Laboratory - Chemistry Order LIVER FUNCTION BLOOD (SST-SERUM) [facility] February 12, 2025 12:00 AM Laboratory - Chemistry Order CBC AND DIFF (AUTO) BLOOD (LAV-BLOOD) [facility] February 12, 2025 12:00 AM Laboratory - Chemistry Order HEMOGLOBIN A1C PANEL BLOOD (LAV-BLOOD) [facility] February 12, 2025 12:00 AM Laboratory - Chemistry Order TSH BLOOD (SST-SERUM) [facility] February 12, 2025 12:00 AM Laboratory - Chemistry Order MICROALBUMIN CREATININE RATIO PANEL URINE (RANDOM) [facility] February 12, 2025 12:00 AM Laboratory - Chemistry Order URINALYSIS URINE [facility] February 12, 2025 12:00 AM Laboratory - Chemistry Order CALCIUM BLOOD (SST-SERUM) [facility] February 12, 2025 12:00 AM Laboratory - Chemistry Order VITAMIN D (25-OH) BLOOD (SST-SERUM) [facility] February 12, 2025 12:00 AM Laboratory - Chemistry Order MAGNESIUM BLOOD (SST-SERUM) [facility] Social History: Smoking Status (Most current) and Tobacco Use (All prior to encounter date) This section includes the most current, and the historical, smoking and tobacco- related health factors from the [place] facility where the Encounter took place. Current Smoking Status This section includes the most current smoking, or tobacco-related health factor, from the [place] facility where the Encounter took place. Date/Time Current Smoking Status Comment Facil ity May 23, 2023 12:03 PM [place]-TOBACCO FORMER USER [facility] Tobacco Use History This section includes a history of the smoking, or tobacco-related health factors, that were collected on or before the date of the Encounter. The data comes from the [place] facility where the Encounter took place. Date/Time Smoking Status/Tobacco Use Comment F acility May 23, 2023 12:03 PM [place]-TOBACCO QUIT 5 TO < 15 YRS [facility] Encounter Notes: All associated encounter notes This section contains the clinical notes associated to the Encounter. Date/Time Encounter Note(s) Provider Source February 14, 2025 02:12 PM ADMINISTRATIVE NOT E: LOCAL TITLE: ADMINISTRATIVE NOTE STANDARD TITLE: ADMINISTRATIVE NOTE DATE OF NOTE: FEBRUARY 14, 2025@14:12 ENTRY DATE: FEBRUARY 14, 2025@14:12:51 AUTHOR: NAN CALDERON EXP COSIGNER: URGENCY: STATUS: COMPLETED continuity writer attempted to contact to offer scd'ing options of SW. unable to reach at this time. left req a call back to rs [phone]. /mando/ NAN CALDERON ADVANCED STATION HELPER Signed: 02/14/2025 14:16 NAN CALDERON
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
--- OUTSIDE RECORDS SUMMARY | 2025-02-14 18:25 | XMS_ITS | Clinical Summary ---
Author Organization [facility] Address [address] [place] [address] Care Team Providers Care Stonemason Helper Name Role Phone Fermin Ibrahim MD Primary Care Provider [phone] Surgical History Surgery Date Site/Laterality Comments CARPAL TUNNEL RELEASE PROCEDURE:CARPAL TUNNEL RELEASE SHOULDER SURGERY PROCEDURE:SHOULDER SURGERY Medical History Medical History Date Comments Hypertension DX:Hypertension Social History Tobacco Use Types Packs/Day Years Used Date Smoking Tobacco: Former Smokeless Tobacco: Former Sex and Gender Information Value Date Recorded Sex Assigned at Not on file Legal Sex Male 8:49 PM EST Gender Identity Not on file Sexual Orientation Not on file Obstetrics History Last Filed Vital Signs Vital Sign Reading Time Taken Comments Blood Pressure 164/86 02/23/2022 2:55 PM EDT L A rm Pulse 80 02/23/2022 2:55 PM EDT Temperature - - Respiratory Rate - - Oxygen Saturation - - Inhaled Oxygen Concentration - - Weight - - Height - - Body Mass Index - - Plan of Treatment Health Maintenance Due Date Last Done Comments DTaP,Tdap,and Td Vaccines (1 - Tdap) 1969 Pneumococcal Vaccine: 50+ Ye ars (1 of 1 - PCV) 2002 Zoster Vaccines (1 of 2) 2002 Abdominal Aortic Aneurysm (A AA) Screen 09/03/2022 Cholesterol Screening (Lipid Panel) 09/03/2022 Colorectal Cancer Screening: Colonoscopy 09/03/2022 Depression Screening 09/03/2022 Falls Risk Assessment 09/03/2022 Hepatitis C Screening 09/03/2022 Social Influencers of Health Screening 09/03/2022 COVID-19 Vaccine ( - 2023-2 5 season) 2024 Influenza Vaccine (Season Ended) 2025 RSV Immunization Adult Patie nts (1 - 1-dose 75+ series) 2027 HIB Vaccines Aged Out No longer eligi ble based on patient's age to complete this topic HPV Vaccines Aged Out No longer eligi ble based on patient's age to complete this topic Hepatitis A Vaccines Aged Out No long er eligible based on patient's age to complete this topic Hepatitis B Vaccines Aged Out No long er eligible based on patient's age to complete this topic IPV Vaccines Aged Out No longer eligi ble based on patient's age to complete this topic MMR Vaccines Aged Out No longer eligi ble based on patient's age to complete this topic Meningococcal ACWY Vaccine Aged Out N o longer eligible based on patient's age to complete this topic Meningococcal B Vaccine Aged Out No l onger eligible based on patient's age to complete this topic RSV Immunization Patients Un tamara 20 months Aged Out No longer eligible b ased on patient's age to complete this topic Varicella Vaccines Aged Out No longer eligible based on patient's age to complete this topic Care Teams Stonemason Helper Relationship Specialty Start Date End Date Fermin Ibrahim MD [address] [place] [address] PCP - General 03/08/11
--- OUTSIDE RECORDS SUMMARY | 2025-02-14 18:25 | XMS_ITS ---
Author Organization Loco Wren III, MD Address [address] [address] Care Team Providers Care Nutrition Program Instructor Name Role Phone Loco Wren Primary Care Provider [phone] Allergies Allergen (clinical drug ingredient) Drug/Non Drug Allergy documented on EMR Reaction Allergy Type Onset Date Status Penicillin Unknown Drug Allergy Active lorazepam Ativan Unknown Drug Allergy Active amoxicillin Amoxicillin Unknown Drug Allergy Act ange Allergic to insects (uncoded) Unknown Allergy Active REASON FOR VISIT Recent hypertensive emergency, History of osteomyelitis of the spine, Chronic back pain, Hyperlipidemia, PETSD, Obesity, Essential tremor Medications Medication SIG (Take, Route, Frequency, Duration) Notes Start Date End Date Status hydroCHLOROthiazide 25 MG 1 tablet in th [...] tablet Or ally Once a day Active Mirtazapine 45 MG 1 tablet Orally at b ed time for 90 days Active amLODIPine Besylate 10 MG 1 tablet Orall y Once a day for 90 days Active Social History Tobacco Use: Social History Observation Description Date Details (start date - stop date) Former Smoker NA - NA Sex Assigned At : Social History Observation Description Sex Assigned At Male Tobacco Use/Smoking Question Answer Notes Patient is a former smoker How long has it been since you last smoked? > 10 years Additional Findings: Tobacco Non-User Ex-cigaret te smoker Problems Problem Type SNOMED Code ICD Code Onset Dates Problem Status W/U Status Risk Notes Problem Diarrhea (R19.7) Active confirmed He has been hav ing occasional diarrhea which he attributes to long-term antibiotic use. If this continues he will need a stool culture a gastroenterology consultation. Vital Signs Temperature 97.6 degrees Fahrenheit 02/11/20 25 Blood pressure systolic 136 mm Hg 02/11/20 25 Blood pressure diastolic 76 mm Hg 025 Heart Rate 76 /min 02/10/2025 Height 71 in 02/10/2025 Weight 255 lbs 02/10/2025 BMI 35.56 kg/m2 02/10/2025 Encounters Encounter Location Date Provider Diagnosis Loco Wren III, MD [address] [place] [address] [place] [address] 02/10/2025 Loco Wren Chronic pain syndrom e G89.4 ; Hypertension I10 ; Diarrhea R19.7 ; Former smoker Z87.891 ; Posttraumatic stress disorder F43.10 ; Benign prostatic hyperplasia with lower urinary tract symptoms N40.1 ; Degenerative joint disease (DJD) of lumbar spine M47.816 ; Degenerative disc disease, cervical M50.30 ; Migraines G43.909 and Impacted cerumen of left ear H61.22 Assessments Encounter Date Diagnosis (ICD Code) Assessment Notes Treatment Notes Treatment Clinical Notes 02/10/2025 Chronic pain syndrome (ICD-10 - G89.4) He continues wiith pain management by Dr. Gaines. He continues to have a supply of Percocet. He says the pain is unchanged. 02/10/2025 Hypertension (ICD-10 - I10) His blood pressure today is stable. I recommended continued aggressive weight loss and sodium restriction. No change in his medications was needed.We had a long discussion which his daughter was present about the importance of compliance with medication and treatment. He will continue to receive Primary care at the [facility] as well as here. 02/10/2025 Diarrhea (ICD-10 - R19.7) He has [...] remove the cerumen impaction. Plan Of Treatment Medication Medication Name Sig Start Date Stop Date Notes hydroCHLOROthiazide 25 MG 1 tablet in th e morning Orally Once a day for 90 days Potassium Chloride ER 10 MEQ 1 tablet wi th food Orally Once a day for 90 days oxyCODONE HCl 15 MG TAKE 1 TABLET BY BRITTANY TH EVERY 6 HOURS NEEDED FOR SEVERE PAIN. MAY FILL LESSER QUANTITY Oral Dorzolamide HCl 2 % 1 drop into affected eye Ophthalmic Three times a day Aspirin Adult Low Dose 81 MG 1 tablet Orally Once a day Mirtazapine 45 MG 1 tablet Orally at b ed time for 90 days amLODIPine Besylate 10 MG 1 tablet Orall y Once a day for 90 days Pending Test Test Name Order Date CULTURE, STOOL 02/10/2025 Next Appt Details Follow Up: 1 Week, Reason: E ar Lavage Provider Name:Loco Suárezrne, 02/19/2025 02:45:00 PM, [address] [place] [address] [address] ESC[place]AR, [place], [address], Progress Notes * BRANDY WARNER MDOB:[birth year] (74 yo M)Acc No.[id number]:02/10/2025 Patient:?BRANDY WARNER Provider:?Loco Wren MD :1950???Age:74 Y???Sex:Male Isaac e:02/10/2025 Address:[address] [place], [place] [id number] Subjective: * Chief Complaints: * ???Recent hypertensive emerg encyHistory of osteomyelitis of the spineChronic back painHyperlipidemiaPETSDObesityEssential tremor * HPI: ???COVID-19 Screening:?He also receives primary care through the [facility].? He goes to [facility] outpatient clinic where he sees a female physician whose name he cannot remember.? She recently sent him into the [facility] emergency room his blood pressure was 208/116.? He had not been taking his antihypertensive medications.? He was admitted from January 31 2 February 03, 2025.? He is seen today in follow-up.? His medications were reviewed.? His blood pressure was controlled today.? He has a history of osteomyelitis at L3 and L4 2 years ago treated with long- term antibiotics.? He is no longer on antibiotics.? He complains of chronic loose stools and a tremor which she causes shakes.He continues to take Percocet periodically for his back pain given to him by his his psychiatrist, Dr. Gaines at [facility].? He? continues to have nocturia twice a night.Blood work at [facility] recently showed white count 7.4 hematocrit 45.6 platelets 256 glucose 99 BUN 15 creatinine 1.21, CT scan of the brain negative, EKG unremarkable. ?Questions?Have you had any new onset fever, chills, cough, congestion, sore throat, shortness of breath, muscle aches??No * ROS:?General/Constitutional:?pain?Chronic pain throughout spine.?Chills?denies.?Fatigue?admits.?Fever?denies.?ENT:?Decreased hearing?denies.?Respiratory:?Cough?denies.?Cardiovascular:?Chest pain with exertion?denies.?Dyspnea on exertion?denies.?Shortness of breath?denies.?Gastrointestinal:?Constipation?occasional.?Decreased appetite?denies.?Diarrhea?denies.?Heartburn?denies.?Nausea?denies.?Rectal bleeding?denies.?Vomiting?denies.?Hematology:?bruising?denies.?petechiae?denies.?Swollen glands?none have been noted.?Genitourinary:?Frequent urination?twice a night.?Musculoskeletal:?Muscle aches?denies.?Painful joints?denies.?Sciatica?denies.?Weakness?denies.?Skin:?Itching?denies.?Rash?denies.?Skin lesion(s)?denies.?Neurologic:?Difficulty speaking?denies.?Dizziness?denies.?Headache?denies.?Low back pain?that is chronic.?Psychiatric:?Depressed mood?denies.? * Medical History:? * Surgical History:?right carp al tunnel surgery, [facility], no abnormal bleeding 2015colonoscopy over5 years agoneedle biopsy of left thyroid [facility] negative 09/2016pilonidal cyst surgery teenagerL5-S1 surgery 07/25/2017epidoral placement 01/2019carpal tunnel syndrome left hand right elbow surgery Vertebra spacer 07/2021 * Hospitalization/Major Diagno stic Procedure:?Denies Past Hospitalization * Family History:?Father: dece ased, diagnosed with CVD, DM, HTN.?Mother: , diagnosed with CVD.?2 brother(s) , 3 sister(s) . 1 daughter(s) . .? One of his brothers from heart valve disease. One of his brothers had a tumor on his left ear. * Social History:?Tobacco Use:?Tobacco Use/Smoking?Patient is a?former smoker ?How long has it been since you last smoked??> 10 years ?Additional Findings: Tobacco Non-User?Ex-cigarette smoker ???He has been to Iva for 42 years and they have a daughter, Oriana. He works at the [employer]. He was born in [place], [place]. * Medications:?TakingMirtazapi ne 45 MG Tablet 1 tablet Orally Once at bed time amLODIPine Besylate 10 MG Tablet 1 tablet Orally Once a day hydroCHLOROthiazide 25 MG Tablet TAKE 1 TABLET BY MOUTH EVERY DAY Orally Once a day Potassium Chloride ER 10 MEQ Tablet Extended Release TAKE 1 TABLET BY MOUTH EVERY DAY WITH FOOD oxyCODONE HCl 15 MG Tablet TAKE 1 TABLET BY MOUTH EVERY 6 HOURS NEEDED FOR SEVERE PAIN. MAY FILL LESSER QUANTITY Oral Dorzolamide HCl 2 % Solution 1 drop into affected eye Ophthalmic Three times a day Aspirin Adult Low Dose 81 MG Tablet Delayed Release 1 tablet Orally Once a day Taking Mirtazapine 45 MG Tablet 1 tablet Orally Once at bed time Taking amLODIPine Besylate 10 MG Tablet 1 tablet Orally Once a day Taking hydroCHLOROthiazide 25 MG Tablet TAKE 1 TABLET BY MOUTH EVERY DAY Orally Once a day Taking Potassium Chloride ER 10 MEQ Tablet Extended Release TAKE 1 TABLET BY MOUTH EVERY DAY WITH FOOD Taking oxyCODONE HCl 15 MG Tablet TAKE 1 TABLET BY MOUTH EVERY 6 HOURS NEEDED FOR SEVERE PAIN. MAY FILL LESSER QUANTITY Oral Taking Dorzolamide HCl 2 % Solution 1 drop into affected eye Ophthalmic Three times a day Taking Aspirin Adult Low Dose 81 MG Tablet Delayed Release 1 tablet Orally Once a day DiscontinuedVitamin D 25 MCG (1000 UT) Tablet 1 tablet Orally Once a day Simvastatin 20 MG Tablet 1 tablet in the evening Orally Once a day Potassium Chloride 20 MEQ/50ML Solution as directed Intravenous Lisinopril 5 MG Tablet 1 tablet Orally Once a day Brimonidine Tartrate-Timolol 0.2-0.5 % Solution INSTILL 1 DROP IN BOTH EYES TWICE DAILY DIRECTED Ophthalmic Sildenafil Citrate 100 MG Tablet 1 tablet as needed Orally Once a day Vitamin D3 2000 UNIT Capsule Oral Albuterol Sulfate HFA 108 (90 Base) MCG/ACT Aerosol Solution 1 puff as needed Inhalation every 4 hrs prn wheezing Carvedilol 3.125 MG Tablet TAKE 1 TABLET BY MOUTH TWICE DAILY Breo Ellipta 100- 25 MCG/INH Aerosol Powder Breath Activated INHALE 1 PUFF BY MOUTH EVERY DAY Mometasone Furoate 0.1 % Cream APPLY EXTERNALLY TO THE AFFECTED AREA ONCE DAILY oxyCODONE-Acetaminophen 10-325 MG Tablet TAKE 1 TABLET BY MOUTH EVERY 8 HOURS NEEDED FOR SEVERE PAIN. MAY FILL FOR LESSER QUANTITY. PLEASE FILL TODAY Oral Escitalopram Oxalate 10 MG Tablet 1 tablet Orally Once a day traZODone HCl 50 MG Tablet TAKE 1 TABLET BY MOUTH EVERY DAY Medication List reviewed and reconciled with the patientDiscontinued Vitamin D 25 MCG (1000 UT) Tablet 1 tablet Orally Once a day Discontinued Simvastatin 20 MG Tablet 1 tablet in the evening Orally Once a day Discontinued Potassium Chloride 20 MEQ/50ML Solution as directed Intravenous Discontinued Lisinopril 5 MG Tablet 1 tablet Orally Once a day Discontinued Brimonidine Tartrate-Timolol 0.2-0.5 % Solution INSTILL 1 DROP IN BOTH EYES TWICE DAILY DIRECTED Ophthalmic Discontinued Sildenafil Citrate 100 MG Tablet 1 tablet as needed Orally Once a day Discontinued Vitamin D3 2000 UNIT Capsule Oral Discontinued Albuterol Sulfate HFA 108 (90 Base) MCG/ACT Aerosol Solution 1 puff as needed Inhalation every 4 hrs prn wheezing Discontinued Carvedilol 3.125 MG Tablet TAKE 1 TABLET BY MOUTH TWICE DAILY Discontinued Breo Ellipta 100-25 MCG/INH Aerosol Powder Breath Activated INHALE 1 PUFF BY MOUTH EVERY DAY Discontinued Mometasone Furoate 0.1 % Cream APPLY EXTERNALLY TO THE AFFECTED AREA ONCE DAILY Discontinued oxyCODONE-Acetaminophen 10-325 MG Tablet TAKE 1 TABLET BY MOUTH EVERY 8 HOURS NEEDED FOR SEVERE PAIN. MAY FILL FOR LESSER QUANTITY. PLEASE FILL TODAY Oral Discontinued Escitalopram Oxalate 10 MG Tablet 1 tablet Orally Once a day Discontinued traZODone HCl 50 MG Tablet TAKE 1 TABLET BY MOUTH EVERY DAY Medication List reviewed and reconciled with the patient * Allergies:?AmoxicillinAllerg ic to insectsAtivanPenicillinno[Allergies Verified] Objective: * Vitals:?Ht: 71, Wt:255, BMI: 35.56, BP:136/76, HR:76, Temp:97.6, Wt-k.67. * Examination: ???General Examination: ?GENERAL APPEARANCE:?pleasant, well nourished, well developed, in no acute distress, calm and relaxed, obese, man.?HEAD:?atraumatic, normocephalic.?EYES:?eomi, perrla, anicteric, conjugate.?EARS:?Complete cerumen occlusion left ear.?NOSE:?septum intact.?ORAL CAVITY:?normal, unremarkable.?NECK/THYROID:?no jugular venous distention, no carotid bruit, thyroid normal.?LYMPH NODES:?no enlarged lymph nodes,spleen normal.?SKIN:?no suspicious lesions, anicteric.?HEART:?no clicks, gallops, murmurs, or rubs, regular rhythm, S1, S2 normal, no s3, or vascular bruits.?LUNGS:?clear to auscultation .?BREASTS:??no masses palpable bilaterally.?ABDOMEN:?bowel sounds normal, no ascites, no organomegaly, no mass, centripital obesity.?RECTAL EXAM:?not examined.?MUSCULOSKELETAL:?extremities unremarkable, no clubbing, cyanosis or edema, Decreased range of motion associated with pain of cervical and lumbar spine.?PERIPHERAL PULSES:?normal.?NEUROLOGIC:?alert and oriented, cranial nerves 2-12 grossly intact, deep tendon reflexes 2+ symmetrical, motor strength normal upper and lower extremities, sensory exam intact.?PSYCH:?alert, oriented, speech clear.? Assessment: * Assessment: 1.?Hypertension - I10 (Prima ry)???Notes :His blood pressure today is stable. I recommended continued aggressive weight loss and sodium restriction. No change in his medications was needed.We had a long discussion which his daughter was present about the importance of compliance with medication and treatment.? He will continue to receive Primary care at the [facility] as well as here.???2.?Chronic pain syndrome - G89.4???Notes :[facility] by Dr. Gaines. He continues to have a supply of Percocet.? He says the pain is unchanged.???3.?Diarrhea - R19.7???Notes :He has been having occasional diarrhea which he attributes to long-term antibiotic use.? If this continues he will need a stool culture a gastroenterology consultation.???4.?Former smoker - Z87.891???Notes :He says he is motivated not to smoke. We discussed a plan to prevent relapse in times of stress and illness.???5.?Posttraumatic stress disorder - F43.10???Notes :He is coping fairly well at this time with stress in his life. I have discussed weight loss with him another stress reduction techniques will be employed.???6.?Benign prostatic hyperplasia with lower urinary tract symptoms - N40.1???Notes :He is experiencing nocturia once a night on the average. 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 He was encouraged to continue weight loss. The wound is healing well.???8.?Degenerative disc disease, cervical - M50.30???Notes :Recent radiographic studies showed cord impingement in this area. He will undergo a surgical procedure. He is medically cleared for this procedure without general anesthesia.???9.?Migraines - G43.909???Notes :He has not had a severe migraine headache in a long time. He will continue on his current regimen.???10.?Impacted cerumen of left ear - H61.22???Notes :Come back in 1 week for warm water irrigation to remove the cerumen impaction.??? Plan: * Treatment: 2.?Diarrhea?LAB: CULTURE, STOOL * Procedure Codes:?56697 TRANS CARE MGMT 14 DAY DISCH * Preventive Medicine:? ??Counseling:?Care goal follow-up plan:?Counseling for abnormal BMI given?Yes ?Above Normal BMI Follow-up?Dietary management education, guidance, and counseling, Dietary needs education, Exercise promotion: strength training, Exercise promotion: stretching, Feeding regime, Giving encouragement to exercise, Lifestyle education regarding diet, Nutrition / feeding management, Nutrition therapy, Prescribed activity/exercise education, Prescribed diet education, Prescribed dietary intake, Special diet education, Weight monitoring , Intervention, Order not done: Medical or Other reason not done ?Smoking/Tobacco Use?Patient counseled on the dangers of tobacco use and urged to quit.?02/10/2025 * Follow Up:?1 Week (Reason: E ar Lavage) * Images: * Sign off status: Completed true * Provider:?Loco Wren MD Date:?01/30 Generated for Johnny workman/Glo/eTriasmitting on:?02/14/2025 06:24 PM EDT History and Physical Notes * HPI (History of Present Illness) Category Sub-Category Detail Notes COVID-19 Screening Questions Have you had any new onset fever, chills, cough, congestion, sore throat, shortness of breath, muscle aches?: No Examination Category Sub-Category Detail Notes General Examination GENERAL APPEARANCE: pleasant , well nourished, well developed, in no acute distress, calm and relaxed, obese, man HEAD: atraumatic, normocep halic EYES: eomi, perrla, anicte elvin, conjugate EARS: Complete cerumen occ lusion left ear NOSE: septum intact NECK/THYROID: no jugular venous di stention, no carotid bruit, thyroid normal HEART: no clicks, gallops, murmurs, or rubs, regular rhythm, S1, S2 normal, no s3, or vascular bruits LUNGS: clear to auscultatio n ABDOMEN: bowel sounds normal, no ascites, no organomegaly, no mass, centripital obesity NEUROLOGIC: alert and oriented, cranial nerves 2-12 grossly intact, deep tendon reflexes 2+ symmetrical, motor strength normal upper and lower extremities, sensory exam intact SKIN: no suspicious lesion s, anicteric PERIPHERAL PULSES: normal BREASTS: no masses palpable b ilaterally MUSCULOSKELETAL: extremities unremark able, no clubbing, cyanosis or edema, Decreased range of motion associated with pain of cervical and lumbar spine LYMPH NODES: no enlarged lymph no antelmo,spleen normal RECTAL EXAM: not examined PSYCH: alert, oriented, spe ech clear ORAL CAVITY: normal, unremarkable
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
--- OUTSIDE RECORDS SUMMARY | 2025-02-14 18:25 | XMS_ITS | Clinical Summary ---
Author Organization [facility] Address [address] [place] [address] Care Team Providers Care Web Administrator Name Role Phone Loco Wren MD Primary Care Provider [phone] Allergies Active Allergy Reactions Criticality Noted Date Comments Amoxicillin Hives 07/14/2017 Penicillins Hives 07/14/2017 Medications Medication Sig Dispensed Refills Start Date End Date Status amLODIPine (NORVASC) tablet 5 mg 0 07/05/2017 Active carvedilol (COREG) 3.125 MG tablet 1 06/21/2017 Active cyclobenzaprine (FLEXERIL) 10 MG tablet 0 07/04/2017 Active hydrochlorothiazid e (HYDRODIURIL) tablet 25 mg 1 06/21/2017 Active FLUARIX QUADRIVALENT 0.5 ML injection inject 0.5 milliliter intramuscularly 0 07/05/2017 Active ketoconazole (NIZORAL) 2 % cream 0 07/01/2017 Active mometasone (ELOCON) 0.1 % cream 1 07/01/2017 Active Morphine Sulfate ER (MS CONTIN) 30 MG TBCR 0 07/06/2017 Active morphine (MSIR) 15 MG tablet take 1 tablet by mouth every 6 hours if needed for Breakthrough pain 0 07/05/2017 Active Morphine Sulfate ER (MS CONTIN) 15 MG TBCR 0 07/07/2017 Active HYDROmorphone (DILAUDID) 2 MG tabletIndications: Spinal stenosis of lumbar region with neurogenic claudication take 1 tablet by mouth every 4 to 6 hours 30 tablet 0 09/22/2017 Active Active Problems Problem Noted Date Diagnosed Date Status post lumbar spinal fusion 08/19/2017 Social History Tobacco Use Types Packs/Day Years Used Date Smoking Tobacco: Former Smokeless Tobacco: Former Sex and Gender Information Value Date Recorded Sex Assigned at Male 09/14/2018 9:28 AM EST Gender Identity Male 09/14/2018 9:28 AM EST Sexual Orientation Not on file Last Filed Vital Signs Vital Sign Reading Time Taken Comments Blood Pressure 128/80 09/14/2018 9:57 AM EST Pulse - - Temperature 37 ??C (98.6 ??F) 08/18/2017 11:44 AM EST Respiratory Rate - - Oxygen Saturation - - Inhaled Oxygen Concentration - - Weight 132.5 kg (292 lb) 09/14/2018 9:57 AM EST Height 185.4 cm (6' 1 ) 09/22/2017 10:19 AM EST Body Mass Index 38.52 09/22/2017 10:19 AM EST Plan of Treatment Health Maintenance Due Date Last Done Comments Hepatitis C Screening 1950 COVID-19 Vaccine (#1) 01/15/1951 Depression Screening 1964 Preventative Health Evaluation 1970 DTap / Tdap / Td (1 - Tdap) 1971 Colon Cancer Screening (Colonoscopy) 1997 Shingrix-Zoster Vaccine (1 of 2) 2002 Fall Risk Assessment 2017 Pneumococcal Vaccine (1 of 1 - PCV) 2017 Influenza Vaccine (#1) 2024 RSV Adult > 60+ Yrs or Pregn ant (1 - 1-dose 75+ series) 2027 Hepatitis B Vaccines Aged Out No long er eligible based on patient's age to complete this topic RSV Ped < 20 months Aged Out No longe r eligible based on patient's age to complete this topic Advance Directives For more information, please contact: [phone] Documents on File Type Date Recorded Patient Core Oven Tender Expl anation Advance Directive and Living Will 03/09/2018 9:27 AM Care Teams Web Administrator Relationship Specialty Start Date End Date Loco Wren MD [address] [phone] PCP - General Oncology 07/14/17
--- OUTSIDE RECORDS SUMMARY | 2025-02-14 18:25 | XMS_ITS | Encounter Summary ---
Author Name [facility] Organization [facility] [place] Address [address] [place] [id number] Care Team Providers Care Closing Machine Operator Name Role Phone TRINITY MONTENEGRO Primary Care [...] SELF PLUS 1 Oct 02, 2024 33C [id number] KAREEM VICTORIA PATIENT [place] [place] PREFERRED PROVIDER ORGANIZAT ION (PPO) BASIC FAMIL Y Oct 06, 2007 [id number] KAREEM VICTORIAMolly PATIENT MEDICARE (WNR) MEDICARE (M) PART A Jul 02, 2017 PART A [id number] KAREEM VICTORIAMolly PATIENT MEDICARE (WNR) MEDICARE (M) PART B Jul 02, 2017 PART B [id number] KAREEM VICTORIAMolly PATIENT Selected Encounter This section includes the information on record at [place] for the Encounter. Date/Time Encounter Type Encounter Description Reason Provider Source Mar 06, 2024 02:00 PM PSYTX W PT 60 MINUTES [facility] - IND ICD-10-CM F43.10 Post-traumatic stress disorder, unspecified PIPO BARRIGA Geraldo Encounter Template Text not used by [place] Assessments - Encounter Diagnoses This section includes the primary and secondary diagnoses documented for the Encounter. Date/Time Primary/Secondary Diagnosis Diagnosis Name Provider Source Mar 29, 2024 12:18 PM PRIMARY Post-traumatic stress disorder, unspecified PIPO BARRIGA MOCLIPS Mar 29, 2024 12:18 PM SECONDARY Depression, unspecified PIPO BARRIGA BRE Mar 29, 2024 12:18 PM SECONDARY Migraine, unsp, not intractable, without status migrainosus PIPO BARRIGA MOCLIPS Plan of Treatment: Future Appointments (+ 6 months) and Future Tests (+/- 45 days) The Plan of Treatment section includes future care activities for the patient from all [place] treatmentfacilities. This section includes future appointments and future orders which are active, pending or scheduled. Future Appointments This section includes appointments that were scheduled to occur 6 months from the date of the Encounter, up to a maximum of 20 appointments. The data comes from all [place] treatment facilities. Appointment Date/Time Appointment Type Appointme nt Facility Name Mar 19, 2024 01:00 PM [facility] [place] [facility] [place] [facility] Apr 12, 2024 01:00 PM [place] [facility] [place] [facility] Apr 16, 2024 03:00 PM [facility] [facility] [place] [facility] May 03, 2024 01:00 PM [facility] [facility] [place] [facility] Jun 28, 2024 01:00 PM [place] [facility] [place] [facility] Jul 02, 2024 03:00 PM [facility] [facility] [place] [facility] Aug 15, 2024 03:00 PM [place] [facility] [place] [facility] Aug 16, 2024 01:00 PM [facility] [place] [facility] [place] [facility] Encounter Notes: All associated encounter notes This section contains the clinical notes associated to the Encounter. Date/Time Encounter Note(s) Provider Source Mar 06, 2024 02:54 PM SOCIAL WORK NOTE: LOCAL TITLE: SOCIAL WORK NOTE STANDARD TITLE: SOCIAL WORK NOTE DATE OF NOTE: MAR 06, 2024@14:54 ENTRY DATE: MAR 06, 2024@14:54:41 AUTHOR: PIPO BARRIGA COSIGNER: JUANY CAMPBELL URGENCY: STATUS: COMPLETED INFORMED CONSENT REVIEWED: At beginning of session reviewed rights and limits of confidentiality, mandatory reporting situations, duty to warn and protect, Bean Warning, (if treatment team finds patient to be an acute danger to himself or others, that this information could be relayed to a court of law and presented to a ribbon lapper tender), and DOD access for active duty service members. Provided Suicide Prevention Hotline number, and other contact numbers as necessary. VISIT DURATION 60 minutes DIAGNOSES: PTSD unspec, Depression unspec, migraine unspec VETERANS STATEMENT OF GOALS/CONCERNS: I was diagnosed with PTSD in 2004 and treated both in [place] and [place]. 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 SESSION FOCUS: Álvaro joined session in person at the [facility] for the first time. Álvaro has considerable difficulty with mobility, uses a walker, and physical pain in his back and shoulder. Álvaro is still hoping to continue in person appointments to maximize the value of the sessions. I just have such a hard time staying focused when I'm at home. Even if I close my door when the session is going, my mind wanders much more. Being here is a lot better. and Creative Developer discussed the possibility of an EMDR consult and talked a little bit about EMDR as a treatment modality. Creative Developer offered psychoeduction for the treatment and told about what the process would entail. Álvaro talked a great deal about his Restoration dionne and his love of the christianity, of prayer, and of mass on Sundays. 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 showed mark in his face when he spoke these words. Creative Developer asked Piru to check in on his back and shoulder pain at that moment and Piru reported that both were still present but significantly less uncomfortable. Piru appeared pleased by this observation. God is sending me a message. INTERVENTIONS: Psychotherapeutic Interventions: Developing rapport, assessing presenting [...] weekly individual supervision meeting. /mando/ PIPO BARRIGA EDGE BASTER Signed: 03/06/2024 15:03 /mando/ SOUMYA HALL Farm Machine Operator Mental Health Cosigned: 03/06/2024 15:58 PIPO BARRIGA MOCLIPS
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
--- OUTSIDE RECORDS SUMMARY | 2025-02-14 18:26 | XMS_ITS ---
Author Organization Loco Wren III, MD Address [address] [place] [address] Care Team Providers Care Verification Engineer Name Role Phone Loco Wren Primary Care Provider Allergies Allergen (clinical drug ingredient) Drug/Non Drug Allergy documented on EMR Reaction Allergy Type Onset Date Status Penicillin Unknown Drug Allergy Active lorazepam Ativan Unknown Drug Allergy Active amoxicillin Amoxicillin Unknown Drug Allergy Act ange Allergic to insects (uncoded) Unknown Allergy Active REASON FOR VISIT annual exam Medications Medication SIG (Take, Route, Frequency, Duration) Notes Start Date End Date Status Escitalopram Oxalate 10 MG 1 tablet Oral ly Once a day Active oxyCODONE-Acetaminophen 10-3 25 MG TAKE 1 TABLET BY MOUTH EVERY 8 HOURS NEEDED FOR SEVERE PAIN. MAY FILL FOR LESSER QUANTITY. PLEASE FILL TODAY Oral Active Mometasone Furoate 0.1 % APPLY EXTERNALL Y TO THE AFFECTED AREA ONCE DAILY Active Breo Ellipta 100-25 MCG/INH INHALE 1 PUF F BY MOUTH EVERY DAY Active Carvedilol 3.125 MG TAKE 1 TABLET BY TWICE DAILY Active Brimonidine Tartrate-Timolol 0.2-0.5 % INSTILL 1 DROP IN BOTH EYES TWICE DAILY DIRECTED Ophthalmic Active Albuterol Sulfate HFA 108 (9 0 Base) MCG/ACT 1 puff as needed Inhalation every 4 hrs prn wheezing 09/29/2020 Active Vitamin D3 2000 UNIT Oral Active Aspirin Adult Low Dose 81 MG 1 tablet Or ally Once a day Active Sildenafil Citrate 100 MG 1 tablet as ne eded Orally Once a day 02/15/2019 Active Lisinopril 5 MG 1 tablet Orally Once a day Active Dorzolamide HCl 2 % 1 drop into affected eye Ophthalmic Three times a day Active Potassium Chloride 20 MEQ/50ML as direct ed Intravenous Active Simvastatin 20 MG 1 tablet in the evening Orally Once a day Active amLODIPine Besylate 5 MG 1 tablet Orally Once a day Active Vitamin D 25 MCG (1000 UT) 1 tablet Oral ly Once a day 07/04/2023 Active hydroCHLOROthiazide 25 MG TAKE 1 TABLET BY MOUTH EVERY DAY IN THE MORNING Active Potassium Chloride ER 10 MEQ TAKE 1 TABL ET BY MOUTH EVERY DAY WITH FOOD Active traZODone HCl 50 MG TAKE 1 TABLET BY BRITTANY TH EVERY DAY Active Social History Tobacco Use: Social History Observation Description Date Details (start date - stop date) Former Smoker NA - NA Sex Assigned At : Social History Observation Description Sex Assigned At Male Tobacco Use/Smoking Question Answer Notes Patient is a former smoker How long has it been since you last smoked? > 10 years Additional Findings: Tobacco Non-User Ex-cigaret te smoker Encounters Encounter Location Date Provider Diagnosis Loco Wren III, MD [address] [place] [address] [facility] [place] [address] 07/08/2024 Loco Wren Chronic pain syndrome G89.4 Assessments Encounter Date Diagnosis (ICD Code) Assessment Notes Treatment Notes Treatment Clinical Notes 07/08/2024 Chronic pain syndrome (ICD-10 - G89.4) He continues [facility] pain management by Dr. Gaines. He has stopped using hydromorphone. He says his pain is generally better. Plan Of Treatment Medication Medication Name Sig Start Date Stop Date Notes Escitalopram Oxalate 10 MG 1 tablet Oral ly Once a day oxyCODONE-Acetaminophen 10-325 MG TAKE 1 TABLET BY MOUTH EVERY 8 HOURS NEEDED FOR SEVERE PAIN. MAY FILL FOR LESSER QUANTITY. PLEASE FILL TODAY Oral Mometasone Furoate 0.1 % APPLY EXTERNALL Y TO THE AFFECTED AREA ONCE DAILY Breo Ellipta 100-25 MCG/INH INHALE 1 PUF F BY MOUTH EVERY DAY Carvedilol 3.125 MG TAKE 1 TABLET BY BRITTANY TH TWICE DAILY Brimonidine Tartrate-Timolol 0.2-0.5 % INSTILL 1 DROP IN BOTH EYES TWICE DAILY DIRECTED Ophthalmic Albuterol Sulfate HFA 108 (9 0 Base) MCG/ACT 1 puff as needed Inhalation every 4 hrs prn wheezing 09/29/2020 Vitamin D3 2000 UNIT Oral Aspirin Adult Low Dose 81 MG 1 tablet Or ally Once a day Sildenafil Citrate 100 MG 1 tablet as ne eded Orally Once a day 02/15/2019 Lisinopril 5 MG 1 tablet Orally Once a day Dorzolamide HCl 2 % 1 drop into affected eye Ophthalmic Three times a day Potassium Chloride 20 MEQ/50ML as directed Intravenous Simvastatin 20 MG 1 tablet in the even ing Orally Once a day amLODIPine Besylate 5 MG 1 tablet Orally Once a day Vitamin D 25 MCG (1000 UT) 1 tablet Oral ly Once a day 07/04/2023 hydroCHLOROthiazide 25 MG TAKE 1 TABLET BY MOUTH EVERY DAY IN THE MORNING Potassium Chloride ER 10 MEQ TAKE 1 TABL ET BY MOUTH EVERY DAY WITH FOOD traZODone HCl 50 MG TAKE 1 TABLET BY BRITTANY TH EVERY DAY Next Appt Details Provider Name:Loco Wren, 02/19/2025 02:45:00 PM, [address] [place] [address] [address] [address], [place], [address], Progress Notes * BRANDY WARNER MDOB:[birth year] (74 yo M)Acc No.[id number]:07/08/2024 Progress Notes Patient:?BRANDY WARNER Provider:?Loco Wren MD :1950???Age:73 Y???Sex:Male Isaac e:07/08/2024 Address:[address] [place], [place] [id number] Subjective: * Chief Complaints: * ???1. Annual exam. * HPI: ???COVID-19 Screening:?Questions?Have you had any new onset fever, chills, cough, congestion, sore throat, shortness of breath, muscle aches??No ?Have you been exposed to the virus within the last 10 days??No ?Have you travelled internationally in the last 10 days??No ?Have you been exposed to COVID-19 in the past??No ???Fall Risk Screening:?Fall History?Have you had any falls with injury in the past year??No ?Have you had two or more falls in the past year??No ?Fall Risk Assessment:? * ROS:?General/Constitutional:?pain?only normal aches and pains, only normal aches and pains, only normal aches and pains.?Chills?denies, denies, denies.?Fatigue?admits, admits, admits.?Fever?denies, denies, denies.?ENT:?Decreased hearing?denies, denies, denies.?Respiratory:?Cough?denies, denies, denies.?Cardiovascular:?Chest pain with exertion?denies, denies, denies.?Dyspnea on exertion?denies, denies, denies.?Shortness of breath?denies, denies, denies.?Gastrointestinal:?Constipation?denies, denies, denies.?Decreased appetite?denies, denies, denies.?Diarrhea?denies, denies, denies.?Heartburn?denies, denies, denies.?Nausea?denies, denies, denies.?Rectal bleeding?denies, denies, denies.?Vomiting?denies, denies, denies.?Hematology:?bruising?denies, denies, denies.?petechiae?denies, denies, denies.?Swollen glands?none have been noted, none have been noted, none have been noted.?Genitourinary:?Frequent urination?denies, denies, denies.?Musculoskeletal:?Muscle aches?denies, denies, denies.?Painful joints?denies, denies, denies.?Sciatica?denies, denies, denies.?Weakness?denies, denies, denies.?Skin:?Itching?denies, denies, denies.?Rash?denies, denies, denies.?Skin lesion(s)?denies, denies, denies.?Neurologic:?Difficulty speaking?denies, denies, denies.?Dizziness?denies, denies, denies.?Headache?denies, denies, denies.?Low back pain?denies, denies, denies.?Psychiatric:?Depressed mood?denies, denies, denies.? 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 * Surgical History:?right carp al tunnel surgery, [facility], TORITO Kwon, no abnormal bleeding 2014, colonoscopy over5 years ago, needle biopsy of left thyroid [facility] negative 09/2016, pilonidal cyst surgery teenager, L5-S1 surgery 07/25/2017, epidoral placement 01/2019, carpal tunnel syndrome left hand , right elbow surgery , Vertebra spacer 07/2021. * Hospitalization/Major Diagno stic Procedure:?Denies Past Hospitalization. * Family History:?Father: dece ased, diagnosed with [...] a daughter, Oriana. He works at the [employer]. He was born in [place], [place]. * Medications:?Taking hydroCHL OROthiazide 25 MG Tablet TAKE 1 TABLET BY MOUTH EVERY DAY IN THE MORNING , Taking Vitamin D 25 MCG (1000 UT) Tablet 1 tablet Orally Once a day , Taking amLODIPine Besylate 5 MG Tablet 1 tablet Orally Once a day , Taking Simvastatin 20 MG Tablet 1 tablet in the evening Orally Once a day , Taking Potassium Chloride 20 MEQ/50ML Solution as directed Intravenous , Taking Dorzolamide HCl 2 % Solution 1 drop into affected eye Ophthalmic Three times a day , Taking Lisinopril 5 MG Tablet 1 tablet Orally Once a day , Taking Brimonidine Tartrate-Timolol 0.2- 0.5 % Solution INSTILL 1 DROP IN BOTH EYES TWICE DAILY DIRECTED Ophthalmic , Taking Sildenafil Citrate 100 MG Tablet 1 tablet as needed Orally Once a day , Taking Aspirin Adult Low Dose 81 MG Tablet Delayed Release 1 tablet Orally Once a day , Taking Vitamin D3 2000 UNIT Capsule Oral , Taking Albuterol Sulfate HFA 108 (90 Base) MCG/ACT Aerosol Solution 1 puff as needed Inhalation every 4 hrs prn wheezing , Taking Carvedilol 3.125 MG Tablet TAKE 1 TABLET BY MOUTH TWICE DAILY , Taking Breo Ellipta 100-25 MCG/INH Aerosol Powder Breath Activated INHALE 1 PUFF BY MOUTH EVERY DAY , Taking Mometasone Furoate 0.1 % Cream APPLY EXTERNALLY TO THE AFFECTED AREA ONCE DAILY , Taking oxyCODONE-Acetaminophen 10-325 MG Tablet TAKE 1 TABLET BY MOUTH EVERY 8 HOURS NEEDED FOR SEVERE PAIN. MAY FILL FOR LESSER QUANTITY. PLEASE FILL TODAY Oral , Taking Escitalopram Oxalate 10 MG Tablet 1 tablet Orally Once a day , Taking traZODone HCl 50 MG Tablet TAKE 1 TABLET BY MOUTH EVERY DAY , Taking Potassium Chloride ER 10 MEQ Tablet Extended Release TAKE 1 TABLET BY MOUTH EVERY DAY WITH FOOD , Medication List reviewed and reconciled with the patient * Allergies:?Amoxicillin, Oseas rgic to insects, Ativan, Penicillin. Objective: * Vitals:? * Examination: ???General Examination: ?GENERAL APPEARANCE:?pleasant, well nourished, well developed, in no acute distress, calm and relaxed , pleasant, well nourished, well developed, in no acute distress, calm and relaxed.?HEAD:?atraumatic, normocephalic , atraumatic, normocephalic.?EYES:?eomi, perrla, anicteric, conjugate , eomi, perrla, anicteric, conjugate.?EARS:?normal , normal.?NOSE:?septum intact , septum intact.?ORAL CAVITY:?normal, unremarkable , normal, unremarkable.?NECK/THYROID:?no jugular venous distention, no carotid bruit, thyroid normal , no jugular venous distention, no carotid bruit, thyroid normal.?LYMPH NODES:?no enlarged lymph nodes,spleen normal , no enlarged lymph nodes,spleen normal.?SKIN:?no suspicious lesions, anicteric , no suspicious lesions, anicteric.?HEART:?no clicks, gallops, murmurs, or rubs, regular rhythm, S1, S2 normal, no s3, or vascular bruits , no clicks, gallops, murmurs, or rubs, regular rhythm, S1, S2 normal, no s3, or vascular bruits.?LUNGS:?clear to auscultation , clear to auscultation .?BREASTS:??no masses palpable bilaterally , ?no masses palpable bilaterally.?ABDOMEN:?bowel sounds normal, no ascites, no organomegaly, no mass , bowel sounds normal, no ascites, no organomegaly, no mass.?RECTAL EXAM:?not examined , not examined.?MUSCULOSKELETAL:?extremities unremarkable, no clubbing, cyanosis or edema , extremities unremarkable, no clubbing, cyanosis or edema.?PERIPHERAL PULSES:?normal , normal.?NEUROLOGIC:?alert and oriented, cranial nerves 2-12 grossly intact, deep tendon reflexes 2+ symmetrical, motor strength normal upper and lower extremities, sensory exam intact , alert and oriented, cranial nerves 2-12 grossly intact, deep tendon reflexes 2+ symmetrical, motor strength normal upper and lower extremities, sensory exam intact.?PSYCH:?alert, oriented , alert, oriented.? Assessment: * Assessment: 1.?Chronic pain syndrome - G 89.4???Notes :He continues wiith pain management by Dr. Gaines. He has stopped using hydromorphone. He says his pain is generally better.??? Plan: * Treatment: 2.?Others? Continue traZODone HCl Tablet, 50 MG, TAKE 1 TABLET BY MOUTH EVERY DAY;?Continue Potassium Chloride ER Tablet Extended Release, 10 MEQ, TAKE 1 TABLET BY MOUTH EVERY DAY WITH FOOD;?Continue hydroCHLOROthiazide Tablet, 25 MG, TAKE 1 TABLET BY MOUTH EVERY DAY IN THE MORNING;?Continue Vitamin D Tablet, 25 MCG (1000 UT), 1 tablet, Orally, Once a day;?Continue amLODIPine Besylate Tablet, 5 MG, 1 tablet, Orally, Once a day;?Continue Simvastatin Tablet, 20 MG, 1 tablet in the evening, Orally, Once a day;?Continue Potassium Chloride Solution, 20 MEQ/50ML, as directed, Intravenous;?Continue Dorzolamide HCl Solution, 2 %, 1 drop into affected eye, Ophthalmic, Three times a day;?Continue Lisinopril Tablet, 5 MG, 1 tablet, Orally, Once a day;?Continue Brimonidine Tartrate-Timolol Solution, 0.2-0.5 %, INSTILL 1 DROP IN BOTH EYES TWICE DAILY DIRECTED, Ophthalmic;?Continue oxyCODONE-Acetaminophen Tablet, 10-325 MG, TAKE 1 TABLET BY MOUTH EVERY 8 HOURS NEEDED FOR SEVERE PAIN. MAY FILL FOR LESSER QUANTITY. PLEASE FILL TODAY, Oral.?? * Images: * The named appointment provid er may or may not be the originator of this progress note, and it is not deemed complete until electronically signed by the appointment provider. Sign off status: Pending * Provider:?Loco Wren MD Date:?04/2024 Generated for Johnny workman/Glo/Phuongitting on:?02/14/2025 06:25 PM EDT History and Physical Notes * HPI (History of Present Illness) Category Sub-Category Detail Notes Fall Risk Screening Fall History Have you had any falls with injury in the past year?: No Have you had two or more falls in the year?: No Fall Risk Assessment:: COVID-19 Screening Questions Have you had any new onset fever, chills, cough, congestion, sore throat, shortness of breath, muscle aches?: No Have you been exposed to the virus withi n the last 10 days?: No Have you travelled internationally in last 10 days?: No Have you been exposed to COVID-19 in the past?: No Examination Category Sub-Category Detail Notes General Examination GENERAL APPEARANCE: pleasant , well nourished, well developed, in no acute distress, calm and relaxed , pleasant, well nourished, well developed, in no acute distress, calm and relaxed HEAD: atraumatic, normocep halic , atraumatic, normocephalic EYES: eomi, perrla, anicte elvin, conjugate , eomi, perrla, anicteric, conjugate EARS: normal , normal NOSE: septum intact , sept um intact NECK/THYROID: no jugular venous di stention, no carotid bruit, thyroid normal , no jugular venous distention, no carotid bruit, thyroid normal HEART: no clicks, gallops, murmurs, or rubs, regular rhythm, S1, S2 normal, no s3, or vascular bruits , no clicks, gallops, murmurs, or rubs, regular rhythm, S1, S2 normal, no s3, or vascular bruits LUNGS: clear to auscultatio n , clear to auscultation ABDOMEN: bowel sounds normal, no ascites, no organomegaly, no mass , bowel sounds normal, no ascites, no organomegaly, no mass NEUROLOGIC: alert and oriented, cranial nerves 2-12 grossly intact, deep tendon reflexes 2+ symmetrical, motor strength normal upper and lower extremities, sensory exam intact , alert and oriented, cranial nerves 2-12 grossly intact, deep tendon reflexes 2+ symmetrical, motor strength normal upper and lower extremities, sensory exam intact SKIN: no suspicious lesion s, anicteric , no suspicious lesions, anicteric PERIPHERAL PULSES: normal , normal BREASTS: no masses palpable b ilaterally , no masses palpable bilaterally MUSCULOSKELETAL: extremities unremark able, no clubbing, cyanosis or edema , extremities unremarkable, no clubbing, cyanosis or edema LYMPH NODES: no enlarged lymph no antelmo,spleen normal , no enlarged lymph nodes,spleen normal RECTAL EXAM: not examined , not e xamined PSYCH: alert, oriented , al ert, oriented ORAL CAVITY: normal, unremarkable , normal, unremarkable
== END 2025-02-14 18:22 | disposition home or self-care (01) ==
LOC: HO.LNP 18:21
PROVIDERS: Visit Provider Internal Medicine Medical Oncology
DX: Z13.89 Encounter for screening for other disorder (principal)